=== PATIENT | female | born 1960 | race Caucasian/White ===

== ENCOUNTER → 2016-04-18 | Outpatient (CLI) | payer OTHER ==
--- NOTE | 2016-04-20 15:58 | PE ---
Nuclear medicine PET/CT HISTORY: Solitary pulmonary nodule Patient received 12.5 mCi F-18 FDG intravenously, delayed scanning performed from the skull base thro ugh the mid thighs. Localization and attenuation correction CT scan was performed. Correlation to chest CT dated 08 September 2015 Neck and chest: Emphysematous changes are present within the lungs. The right upper lobe there is a s piculated density anteriorly with associated calcification measures approximately 16 x 13 mm with ple ural extensions with SUV 4.1, immediately inferior oval area of increased attenuation also with spicu lated margins measures 2.7 x 1.7 cm., SUV 3.9 In the right lower lobe medially there is an oval densi ty which is pleural-based measuring 2 cm x 1.3 cm. Ill-defined area of increased attenuation present at the posterior costophrenic angle also shows some associated calcification, there is an oval area o f subpleural density also at the left lung base laterally measuring 13 mm and showing some calcificat ion, SUV 3.9. These foci show associated hypermetabolic uptake. There are coronary artery calcifications. Abdomen pelvis: Postop changes are present within the spine. No evident adrenal mass. No adenopathy. A sending colon shows some hypermetabolic uptake which may be physiologic. No additional suspicious h ypermetabolic uptake. IMPRESSION: Indeterminate lung masses have developed in the interval. Consider inflammatory and metas tatic disease, follow-up to assess for stability, progression or resolution
== END | disposition home or self-care (01) ==
LOC: RADPETMAIN 11:52
PROVIDERS: ATTEND Family Medicine
DX: R91.1 Solitary pulmonary nodule (principal)
CPT/HCPCS: 78815; A9552

== ENCOUNTER 2016-10-21 13:58 | Emergency (ER) | payer OTHER ==
[2016-10-21 14:08] VITALS: TEMP 97.7
[2016-10-21] MEDS ORDERED: BENZTROPINE MESYLATE 0.5 MG TAB PO STA (14:22)
--- NOTE | 2016-10-21 14:26 | ED ---
General Adult HPI - General Chief complaint: ENT Stated complaint: FACIAL TREMORS Time Seen by Provider: 10/21/16 14:03 Source: patient, EMS, RN notes reviewed Mode of arrival: EMS Limitations: no limitations - History of Present Illness Initial comments: 56-year-old female presents emergency department for [facility] for involuntary jaw tremors. This has been present for the last 1 week. Staff at [facility] has been aware this will she has not been seen by her physician at [facility]. Patient states that aside getting worse or better. Patient denies any difficulty swallowing this time. Patient states that she is hungry. Patient does take Risperdal and has been on it for a long period time. Patient is a history of COPD and congestive heart failure. Patient is only on oxygen takes it off on a regular basis. Patient denies any chest pain or shortness breath at this time. Denies fever, chills, nausea vomiting. Patient has a suicidal homicidal thoughts. Patient has long history of psychiatric health problems. Patient has been out of psychiatric hospitals. - Related Data Home Medications Medication Instructions Recorded Confirmed Montelukast [Singulair] 10 mg PO HS 05/13/15 10/21/16 Budesonide [Pulmicort] 0.5 mg INHALATION RT-BID 10/24/15 10/21/16 Furosemide [Lasix] 40 mg PO BID 10/24/15 10/21/16 ALPRAZolam [Xanax] 0.5 mg PO DAILY PRN 10/21/16 10/21/16 ALPRAZolam [Xanax] 0.5 mg PO TID 10/21/16 10/21/16 Acetaminophen Tab [Tylenol] 650 mg PO Q4H PRN 10/21/16 10/21/16 Albuterol Nebulized [Ventolin 2.5 mg INHALATION RT-Q4H 10/21/16 10/21/16 Nebulized] HYDROcodone/APAP 5-325MG [[place] 1 tab PO Q8H PRN 10/21/16 10/21/16 5-325] Hydrocortisone Cream 1 applic TOPICAL Q12H 10/21/16 10/21/16 [Hydrocortisone 1% Cream] Ipratropium Nebulized [Atrovent 0.5 mg INHALATION RT-Q4H 10/21/16 10/21/16 Nebulized] Levothyroxine Sodium [Synthroid] 100 mcg PO DAILY 10/21/16 10/21/16 Melatonin 3 mg PO HS 10/21/16 10/21/16 Menthol [Icy Hot] 1 patch TRANSDERM DAILY 10/21/16 10/21/16 Multivitamins, Thera [Multivitamin 1 tab PO DAILY 10/21/16 10/21/16 (formulary)] Potassium Chloride [Klor-Con 10] 10 meq PO BID 10/21/16 10/21/16 Theophylline Anhydrous [Horace-24] 100 mg PO DAILY 10/21/16 10/21/16 Zolpidem [Ambien] 5 mg PO HS 10/21/16 10/21/16 diphenhydrAMINE [Benadryl] 25 mg PO Q12H PRN 10/21/16 10/21/16 risperiDONE [RisperDAL] 4 mg PO HS 10/21/16 10/21/16 Previous Rx's Medication Instructions Recorded levETIRAcetam [Keppra] 1,500 mg PO Q12HR #90 tab 08/16/15 Allergies Allergy/AdvReac Type Severity Reaction Status Date / Time cephalexin monohydrate Allergy Unknown Verified 10/21/16 14:34 [From Keflex] erythromycin base Allergy Unknown Verified 10/21/16 14:34 [Erythromycin Base] Iodinated Contrast- Oral and Allergy Unknown Verified 10/21/16 14:34 IV Dye Penicillins Allergy Unknown Verified 10/21/16 14:34 Sulfa (Sulfonamide Allergy Unknown Verified 10/21/16 14:34 Antibiotics) azithromycin [From Zithromax] AdvReac Nausea Verified 10/21/16 14:34 Opioids - Morphine Analogues AdvReac Confusion Verified 10/21/16 14:34 sulfamethoxazole AdvReac Nausea Verified 10/21/16 14:34 [From Bactrim] trimethoprim [From Bactrim] AdvReac Nausea Verified 10/21/16 14:34 Review of Systems ROS Statement: Those systems with pertinent positive or pertinent negative responses have been documented in the HPI. ROS Other: All systems not noted in ROS Statement are negative. 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 History of Any Multi-Drug Resistant Organisms: MRSA Date of last positivie culture/infection: 1995 MDRO Source:: back (pt uncertain where she was treated) Past Surgical History: Adenoidectomy, Appendectomy, Back Surgery, Hysterectomy, Orthopedic Surgery, Tonsillectomy Additional Past Surgical History / Comment(s): back surgeries with rods in back , lt hip orif, colonoscopy, R eye tear duct repair.PICC LINE-SINCE REMOVED . Past Anesthesia/Blood Transfusion Reactions: No Reported Reaction Past Psychological History: Bipolar Smoking Status: Former smoker Past Alcohol Use History: None Reported Past Drug Use History: None Reported - Past Family History Father Family Medical History: Liver Disease Additional Family Medical History / Comment(s): from cirrhosis of the liver d/t etoh Mother Family Medical History: Congestive Heart Failure (CHF), Diabetes Mellitus, Osteoarthritis (OA) Additional Family Medical History / Comment(s): diverticulitis, osteoporosis Sister(s) Family Medical History: Liver Disease Additional Family Medical History / Comment(s): one sister at age 37 from cirrhosis of the liver-was heavy drinker General Exam Limitations: no limitations General appearance: alert, in no apparent distress Head exam: Present: atraumatic, normocephalic, normal inspection Eye exam: Present: normal appearance, PERRL, EOMI. Absent: scleral icterus, conjunctival injection, periorbital swelling ENT exam: Present: normal oropharynx, mucous membranes moist, TM's normal bilaterally, normal external ear exam, other (Patient's jaw is shifting back and forth though when distracted it does stop.). Absent: normal exam Neck exam: Present: normal inspection, full ROM. Absent: tenderness, meningismus, lymphadenopathy Respiratory exam: Present: normal lung sounds bilaterally. Absent: respiratory distress, wheezes, rales, rhonchi, stridor Cardiovascular Exam: Present: regular rate, normal rhythm, normal heart sounds. Absent: systolic murmur, diastolic murmur, rubs, gallop, clicks Neurological exam: Present: alert, oriented X3, CN II-XII intact, reflexes normal. Absent: motor sensory deficit Skin exam: Present: warm, dry, intact, normal color. Absent: rash Course Vital Signs 10/21/16 10/21/16 14:03 14:48 Temperature 97.7 F Pulse Rate 61 72 Respiratory 18 14 Rate Blood Pressure 126/80 96/72 O2 Sat by Pulse 91 L 94 L Oximetry Medical Decision Making - Medical Decision Making 56-year-old female was in emergency Department with chief complaint of abnormal her jaw. This is most likely secondary to her which were all use. Patient has been on for over a year. Patient is having a dystonic type reaction. This does resolve if he described the patient. Patient was given Cogentin slight improvement over symptoms. Though she may require higher dose this will be decided by her primary care physician who is taking care of her at [facility]. - Lab Data Result diagrams: 10/21/16 14:31 10/21/16 14:31 Lab Results 10/21/16 10/21/16 Range/Units 14:31 14:31 WBC 8.2 (3.8-10.6) k/uL RBC 5.26 (3.80-5.40) m/uL Hgb 14.3 (11.4-16.0) gm/dL Hct 45.0 (34.0-46.0) % MCV 85.6 (80.0-100.0) fL MCH 27.3 (25.0-35.0) pg MCHC 31.9 (31.0-37.0) g/dL RDW 16.1 H (11.5-15.5) % Plt Count 269 (150-450) k/uL Neutrophils % 69 % Lymphocytes % 21 % Monocytes % 6 % Eosinophils % 2 % Basophils % 0 % Neutrophils # 5.7 (1.3-7.7) k/uL Lymphocytes # 1.8 (1.0-4.8) k/uL Monocytes # 0.5 (0-1.0) k/uL Eosinophils # 0.1 (0-0.7) k/uL Basophils # 0.0 (0-0.2) k/uL Anisocytosis Slight Sodium 138 (137-145) mmol/L Potassium 3.5 (3.5-5.1) mmol/L Chloride 100 (98-107) mmol/L Carbon Dioxide 28 (22-30) mmol/L Anion Gap 10 mmol/L BUN 10 (7-17) mg/dL Creatinine 0.60 (0.52-1.04) mg/dL Est GFR (MDRD) Af Amer >60 (>60 ml/min/1.73 sqM) Est GFR (MDRD) Non-Af >60 (>60 ml/min/1.73 sqM) Glucose 90 (74-99) mg/dL Calcium 9.2 (8.4-10.2) mg/dL Magnesium 1.9 (1.6-2.3) mg/dL Total Bilirubin 0.4 (0.2-1.3) mg/dL AST 30 (14-36) U/L ALT 34 (9-52) U/L Alkaline Phosphatase 103 (38-126) U/L Total Protein 6.6 (6.3-8.2) g/dL Albumin 3.8 (3.5-5.0) g/dL Disposition Clinical Impression: Medication reaction, Dyskinesia of mouth Disposition: HOME SELF-CARE Condition: Stable Instructions: Risperidone (By mouth) Additional Instructions: Please return to the Emergency Department if symptoms worsen or any other concerns. Referrals: Daniel Toney MD [Primary Care Provider] - 1-2 days Time of Disposition: 15:30
[2016-10-21 14:48] VITALS: BP 96/72; PULSE 72; RESP 14
[2016-10-21 14:51] LABS: Anisocytosis Slight; Basophils % (A) 0 %; CH 28.5; CHCM 33.5; Eosinophils # (A) 0.1 k/uL (0-0.7); Eosinophils % (A) 2 %; HDW 2.79; HGB 14.3 gm/dL (11.4-16.0); Luc # (Auto) 0.13; Luc % (Auto) 2; Lymphocytes # (A) 1.8 k/uL (1.0-4.8); Lymphocytes % (A) 21 %; MCH 27.3 pg (25.0-35.0); MCHC 31.9 g/dL (31.0-37.0); MCV 85.6 fL (80.0-100.0); Mean Platelet Volume 6.9; Monocytes # (A) 0.5 k/uL (0-1.0); Monocytes % (A) 6 %; Neutrophils # (A) 5.7 k/uL (1.3-7.7); Neutrophils % (A) 69 %; RBC 5.26 m/uL (3.80-5.40); RDW 16.1 % (11.5-15.5); WBC 8.2 k/uL (3.8-10.6); WBC (Perox) 7.97
[2016-10-21 15:04] LABS: ALT 34 U/L (9-52); AST 30 U/L (14-36); Alkaline Phosphatase 103 U/L (38-126); Anion Gap 10 mmol/L; Blood Urea Nitrogen 10 mg/dL (7-17); Calcium 9.2 mg/dL (8.4-10.2); Carbon Dioxide 28 mmol/L (22-30); Chloride 100 mmol/L (98-107); Glucose 90 mg/dL (74-99); Magnesium 1.9 mg/dL (1.6-2.3); Non-African American GFR(MDRD) >60 (>60 ml/min/1.73 sqM); Potassium 3.5 mmol/L (3.5-5.1); Sodium 138 mmol/L (137-145); Total Bilirubin 0.4 mg/dL (0.2-1.3); Total Protein 6.6 g/dL (6.3-8.2)
--- NOTE | 2016-10-21 15:23 | XR ---
EXAMINATION TYPE: XR chest 2V DATE OF EXAM: 10/21/2016 COMPARISON: 10/24/2016 HISTORY: Facial tremors, asthma, and COPD. TECHNIQUE: Frontal and lateral views of the chest are obtained. FINDINGS: There is no focal air space opacity, pleural effusion, or pneumothorax seen. Biapical luce ncy is appreciated. Scattered areas of atelectasis are noted. Partially visualized thoracic fixation rods are seen. The cardiac silhouette is incompletely visualized but again appears mildly enlarged. The osseous structures are intact. The known right lung nodules are not well appreciated on this exa mination. IMPRESSION: 1. No focal consolidation. Scattered areas of atelectasis. The known pulmonary nodules are not well i dentified on this examination. Comparison CT for evaluation of interval change could be performed.
== END 2016-10-21 16:09 | disposition home or self-care (01) ==
LOC: EC 13:58
DX: G24.9 Dystonia, unspecified (principal); T43.591A Poisoning by other antipsychotics and neuroleptics, accidental (unintentional), initial encounter; J44.9 Chronic obstructive pulmonary disease, unspecified; I11.0 Hypertensive heart disease with heart failure; I50.9 Heart failure, unspecified; M79.7 Fibromyalgia; K21.9 Gastro-esophageal reflux disease without esophagitis; E78.5 Hyperlipidemia, unspecified; M19.90 Unspecified osteoarthritis, unspecified site; E07.9 Disorder of thyroid, unspecified; G40.909 Epilepsy, unspecified, not intractable, without status epilepticus; F03.90 Unspecified dementia, unspecified severity, without behavioral disturbance, psychotic disturbance, mood disturbance, and anxiety; F31.9 Bipolar disorder, unspecified; Z87.891 Personal history of nicotine dependence; Z79.51 Long term (current) use of inhaled steroids; Z79.899 Other long term (current) drug therapy; Z88.0 Allergy status to penicillin; Z88.1 Allergy status to other antibiotic agents; Z88.2 Allergy status to sulfonamides; Z91.041 Radiographic dye allergy status; Z88.5 Allergy status to narcotic agent
CPT/HCPCS: 36415; 71020; 80053; 80177; 83735; 85025; 99285

== ENCOUNTER → 2018-11-14 | Outpatient (CLI) | payer OTHER ==
--- NOTE | 2018-11-14 11:13 | US ---
EXAMINATION TYPE: US abdomen complete DATE OF EXAM: 11/14/2018 COMPARISON: NONE CLINICAL HISTORY: 58-year-old female D69.6 Thrombocytopenia, unspecified. GB removed x years ago per patient. Abnormal labs TECHNIQUE: Multiple sonographic images of the abdomen are obtained. FINDINGS: EXAM MEASUREMENTS: Liver Length: 19.8 cm CBD: 0.5 cm CHD: 0.5 cm Spleen: 14.5 cm Right Kidney: 9.0 x 4.3 x 3.8 cm Left Kidney: 9.9 x 4.3 x 5.1 cm Pancreas: No gross abnormality. Liver: Enlarged. Echogenic and heterogenous. No focal lesion seen. Gallbladder: Surgically absent Evidence for sonographic Su's sign: neg CBD: wnl CHD: wnl Spleen: Mildly enlarged Right Kidney: wnl Left Kidney: wnl Upper IVC: wnl Abd Aorta: Mid and distal portion obscured by overlying bowel gas IMPRESSION: 1. Hepatomegaly (19.8 cm) with at least moderate hepatic steatosis. Correlate with LFTs, lipid profil e, and patient risk factors. 2. Status post cholecystectomy. No biliary duct dilatation.
== END | disposition home or self-care (01) ==
LOC: RADUSWWP 10:09
PROVIDERS: ATTEND Internal Medicine Hematology & Oncology
DX: K76.0 Fatty (change of) liver, not elsewhere classified (principal); Z90.49 Acquired absence of other specified parts of digestive tract; Z88.2 Allergy status to sulfonamides; Z88.0 Allergy status to penicillin
CPT/HCPCS: 76700

== ENCOUNTER 2021-08-26 15:14 | Emergency (ER) | payer OTHER ==
[2021-08-26] MEDS ORDERED: SODIUM CHLORIDE 0.9% 500 ML 500 ML IV STA (15:43)
[2021-08-26] MEDS ORDERED: ONDANSETRON 4 MG/2 ML VIAL IVP STA (15:43)
[2021-08-26] MEDS ORDERED: MAGNESIUM SULFATE-D5W PMX 1 GM in DEXTROSE/WATER 1 100ML.BAG IVPB ONE (15:44)
[2021-08-26] MEDS ORDERED: methylPREDNISolone SOD SUCCI 125 MG/2 ML VIAL IV STA (15:44)
[2021-08-26] MEDS ORDERED: IPRATROPIUM-ALBUTEROL 3 ML NEB INHALATION STA (15:44)
--- NOTE | 2021-08-26 15:44 | ED ---
General Adult HPI - General Chief complaint: Weakness Stated complaint: Weakness Time Seen by Provider: 08/26/21 15:22 Source: patient, EMS, RN notes reviewed, old records reviewed Mode of arrival: EMS Limitations: no limitations - History of Present Illness Initial comments: Katie is a 61-year-old female with past medical history remarkable for dementia, asthma, heart failure, prior CVA, fibromyalgia, hypertension, chronic back pain, stage IV lung disease on home 3-4 L nasal cannula who presents emergency Department from her nursing facility over concern for evaluation for possible stroke. Patient is complaining of generalized weakness in addition to a tingling sensation located in the left hand and left foot. She thinks it may have gone completely numb earlier today but is uncertain. Patient is overall a somewhat poor historian. She only has minor numbness that is residual in her left neck. She's been having diarrhea over the last week as well. She also endorses what she thinks is a flare of her COPD/asthma. Endorses a cough that i s persisting, unchanged otherwise. Denies any fevers, chills, sick contacts. Denies any vomiting but does endorse nausea. Denies hematochezia or melena. - Related Data Home Medications Medication Instructions Recorded Confirmed Budesonide [Pulmicort] 0.5 mg INHALATION RT-BID 10/24/15 08/26/21 Furosemide [Lasix] 40 mg PO BID 10/24/15 08/26/21 ALPRAZolam [Xanax] 0.5 mg PO Q8H 10/21/16 08/26/21 Acetaminophen Tab [Tylenol] 650 mg PO Q6H PRN 10/21/16 08/26/21 Levothyroxine Sodium [Synthroid] 100 mcg PO DAILY 10/21/16 08/26/21 Multivitamins, Thera [Multivitamin 1 tab PO DAILY 10/21/16 08/26/21 (formulary)] Potassium Chloride [Klor-Con 10] 10 meq PO BID 10/21/16 08/26/21 Theophylline Anhydrous [Horace-24] 200 mg PO DAILY 10/21/16 08/26/21 diphenhydrAMINE [Benadryl] 50 mg PO BID 10/21/16 08/26/21 Benzocaine/Menthol [Cepacol Sore 1 lozenge MM Q3H PRN 08/26/21 08/26/21 Throat Lozenge] Cyclobenzaprine HCl 7.5 mg PO HS PRN 08/26/21 08/26/21 DULoxetine HCL [Cymbalta] 30 mg PO DAILY 08/26/21 08/26/21 Desoximetasone [Desoximetasone 1 applic TOPICAL BID 08/26/21 08/26/21 0.25%] Docusate [Colace] 200 mg PO DAILY 08/26/21 08/26/21 Guaifenesin/Pseudoephedrne HCl 1 tab PO BID PRN 08/26/21 08/26/21 [Mucinex D ER 1,200-120 mg Tab] HYDROcodone/APAP 7.5-325MG [Daisy 1 tab PO Q6HR 08/26/21 08/26/21 7.5-325] Ipratropium-Albuterol Nebulize 3 ml INHALATION RT-Q6H PRN 08/26/21 08/26/21 [Duoneb 0.5 mg-3 mg/3 ml Soln] Menthol [Biofreeze] 1 applic TOPICAL BID PRN 08/26/21 08/26/21 Montelukast [Singulair] 10 mg PO HS 08/26/21 08/26/21 Pantoprazole Sodium [Protonix] 20 mg PO DAILY 08/26/21 08/26/21 Zolpidem Tartrate [Ambien] 10 mg PO HS 08/26/21 08/26/21 atenoloL [Tenormin] 25 mg PO Q12H 08/26/21 08/26/21 levETIRAcetam [Keppra Oral 900 mg PO Q12H 08/26/21 08/26/21 Solution] lisinopriL [Zestril] 5 mg PO DAILY 08/26/21 08/26/21 polyethylene glycoL 3350 [Miralax] 17 gm PO DAILY PRN 08/26/21 08/26/21 risperiDONE [RisperDAL] 1 mg PO HS 08/26/21 08/26/21 Previous Rx's Medication Instructions Recorded Albuterol Inhaler [Ventolin Hfa 1 - 2 puff INHALATION RT-Q6H PRN 08/26/21 Inhaler] #1 unit Doxycycline Hyclate 100 mg PO Q12H 7 Days #14 tab 08/26/21 predniSONE [Deltasone] 40 mg PO DAILY 5 Days #10 tab 08/26/21 Allergies Allergy/AdvReac Type Severity Reaction Status Date / Time cephalexin monohydrate Allergy Unknown Verified 08/26/21 17:22 [From Keflex] erythromycin base Allergy Unknown Verified 08/26/21 17:22 [Erythromycin Base] Iodinated Contrast Media Allergy Unknown Verified 08/26/21 17:22 [Iodinated Contrast- Oral and IV Dye] Penicillins Allergy Unknown Verified 08/26/21 17:22 Sulfa (Sulfonamide Allergy Unknown Verified 08/26/21 17:22 Antibiotics) azithromycin [From Zithromax] AdvReac Nausea Verified 08/26/21 17:22 Opioids - Morphine Analogues AdvReac Confusion Verified 08/26/21 17:22 sulfamethoxazole AdvReac Nausea Verified 08/26/21 17:22 [From Bactrim] trimethoprim [From Bactrim] AdvReac Nausea Verified 08/26/21 17:22 Review of Systems ROS Statement: Those systems with pertinent positive or pertinent negative responses have been documented in the HPI. Review of Systems: CONST: Denies fever EYES: Denies blurry vision ENT: Denies nasal congestion C/V: Denies Chest pain RESP: Denies shortness of breath GI: Denies abdominal pain : Denies dysuria SKIN: Denies rash. MSK: Denies joint pain. NEURO: Denies headache ROS Other: All systems not noted in ROS Statement are negative. Past Medical History Past Medical History: Asthma, Heart Failure, COPD, CVA/TIA, Dementia, Fibromyalgia, GERD/Reflux, Hyperlipidemia, Hypertension, Osteoarthritis (OA), Pneumonia, Respiratory Disorder, Seizure Disorder, Thyroid Disorder Additional Past Medical History / Comment(s): Stage IV lung disease, home 02 4 liters n/c ATC, CVA in 2009 and 2013 with behavior changes, seizure disorder w ith last seizure 2013, back pain with bilateral sciatica, osteoporosis, peptic ulcer disease, hiatal hernia, vertigo in past, does"nt walk with staright back d/t rods in back/balance issues and falls, AKIAK bilaterally,UTI'S constipation LAST BM 4 DAYS AGO. History of Any Multi-Drug Resistant Organisms: MRSA Date of last positivie culture/infection: 1995 MDRO Source:: back (pt uncertain where she was treated) Past Surgical History: Adenoidectomy, Appendectomy, Back Surgery, Hysterectomy, Orthopedic Surgery, Tonsillectomy Additional Past Surgical History / Comment(s): back surgeries with rods in back, lt hip orif, colonoscopy, R eye tear duct repair.PICC LINE-SINCE REMOVED 09-26-15. Past Anesthesia/Blood Transfusion Reactions: No Reported Reaction Past Psychological History: Bipolar Past Alcohol Use History: None Reported Past Drug Use History: None Reported - Past Family History Father Family Medical History: Liver Disease Additional Family Medical History / Comment(s): from cirrhosis of the liver d/t etoh Mother Family Medical History: Congestive Heart Failure (CHF), Diabetes Mellitus, Osteoarthritis (OA) Additional Family Medical History / Comment(s): diverticulitis, osteoporosis Sister(s) Family Medical History: Liver Disease Additional Family Medical History / Comment(s): one sister at age 37 from cirrhosis of the liver-was heavy drinker General Exam - General Exam Comments Initial Comments: General: Appears in no acute distress. HEAD: Normal with no signs of head trauma. EYES: PERRLA, EOMI, conjunctiva normal, no discharge. ENT: Hearing grossly intact, normal oropharynx. RESPIRATORY: Bilateral end expiratory wheezing. Stable on normal home oxygen. No increased work of breathing. C/V: Regular rate and rhythm. S1 and S2 auscultated, no edema, peripheral pu lses 2+ and intact throughout ABD: Abd is soft, nontender, nondistended EXT: Normal range of motion, no obvious deformity SKIN: No rashes or lesions observed on exposed skin. NEURO: Alert and oriented 4. NIH of 0. GCS of 15. No focal deficits. Limitations: no limitations Course Vital Signs 08/26/21 08/26/21 08/26/21 15:24 16:15 16:26 Temperature 98.8 F Pulse Rate 74 62 66 Respiratory 16 Rate Blood Pressure 175/86 O2 Sat by Pulse 94 L Oximetry Medical Decision Making - Medical Decision Making Based on the patient's presentation and physical exam, I'm concerned for multiple potential etiologies for current symptoms. Likely related to her COPD she hasn't completed COPD exacerbation. Will be given breathing treatment as well as steroids. She does endorse a mild productive cough and will likely go home on antibiotics for bronchitis. We will obtain a broad workup assessing for signs of weakness as well as CT brain. Patient was in agreement this plan. Brain CT shows no acute intracranial process. Chest x-ray reveals no acute cardiopulmonary process. Laboratory studies are remarkable for a slight leukocytosis of 10.8. Troponin is undetectable, BNP is within normal limits. Carbon dioxide is slightly elevated to 38. Remainder the workup is unremarkable. I discussed with her the results of her laboratory studies and imaging. I believe it is safer to be discharged home at this time. She was in agreement this plan. I spoke with the patient's niece, Grace who was in agreement this plan. She'll be discharged home on steroids, breathing treatments, as well as antibiotics for bronchitis. Vital Signs remained within normal limits throughout her stay. I will provide the patient with a prescription for prednisone, albuterol, doxycycline. I instructed the patient to follow up with their PCP in the next 3 days. I explained that the patient should return to the emergency department if they experience any worsening symptoms. Strict return precautions were discussed with the patient. The patient expressed understanding of these instructions. I answered all questions that the patient had. The patient was discharged home in good condition with their prescriptions and follow up information. - Lab Data Result diagrams: 08/26/21 15:51 08/26/21 15:51 Lab Results 08/26/21 08/26/21 08/26/21 Range/Units 15:51 15:51 15:51 WBC 10.8 H (3.8-10.6) k/uL RBC 4.45 (3.80-5.40) m/uL Hgb 12.4 (11.4-16.0) gm/dL Hct 40.3 (34.0-46.0) % MCV 90.5 (80.0-100.0) fL MCH 27.9 (25.0-35.0) pg MCHC 30.9 L (31.0-37.0) g/dL RDW 14.9 (11.5-15.5) % Plt Count 256 (150-450) k/uL MPV 6.6 Neutrophils % 70 % Lymphocytes % 20 % Monocytes % 7 % Eosinophils % 1 % Basophils % 1 % Neutrophils # 7.6 (1.3-7.7) k/uL Lymphocytes # 2.1 (1.0-4.8) k/uL Monocytes # 0.7 (0-1.0) k/uL Eosinophils # 0.1 (0-0.7) k/uL Basophils # 0.1 (0-0.2) k/uL Hypochromasia Slight PT 10.8 (9.0-12.0) sec INR 1.0 (<1.2) APTT 19.9 L (22.0-30.0) sec Sodium (137-145) mmol/L Potassium (3.5-5.1) mmol/L Chloride (98-107) mmol/L Carbon Dioxide (22-30) mmol/L Anion Gap mmol/L BUN (7-17) mg/dL Creatinine (0.52-1.04) mg/dL Est GFR (CKD-EPI)AfAm (>60 ml/min/1.73 sqM) Est GFR (CKD-EPI)NonAf (>60 ml/min/1.73 sqM) Glucose (74-99) mg/dL Calcium (8.4-10.2) mg/dL Magnesium (1.6-2.3) mg/dL Total Bilirubin (0.2-1.3) mg/dL AST (14-36) U/L ALT (4-34) U/L Alkaline Phosphatase (38-126) U/L Troponin I (0.000-0.034) ng/mL NT-Pro-B Natriuret Pep pg/mL Total Protein (6.3-8.2) g/dL Albumin (3.5-5.0) g/dL Urine Color Colorless Urine Appearance Clear (Clear) Urine pH 7.0 (5.0-8.0) Ur Specific [place] 1.003 (1.001-1.035) Urine Protein Negative (Negative) Urine Glucose (UA) Negative (Negative) Urine Ketones Negative (Negative) Urine Blood Negative (Negative) Urine Nitrite Negative (Negative) Urine Bilirubin Negative (Negative) Urine Urobilinogen <2.0 (<2.0) mg/dL Ur Leukocyte Esterase Negative (Negative) Coronavirus (PCR) (Not Detectd) Influenza Type A RNA (Not Detectd) Influenza Type B (PCR) (Not Detectd) 08/26/21 08/26/21 08/26/21 Range/Units 15:51 15:51 15:51 WBC (3.8-10.6) k/uL RBC (3.80-5.40) m/uL Hgb (11.4-16.0) gm/dL Hct (34.0-46.0) % MCV (80.0-100.0) fL MCH (25.0-35.0) pg MCHC (31.0-37.0) g/dL RDW (11.5-15.5) % Plt Count (150-450) k/uL MPV Neutrophils % % Lymphocytes % % Monocytes % % Eosinophils % % Basophils % % Neutrophils # (1.3-7.7) k/uL Lymphocytes # (1.0-4.8) k/uL Monocytes # (0-1.0) k/uL Eosinophils # (0-0.7) k/uL Basophils # (0-0.2) k/uL Hypochromasia PT (9.0-12.0) sec INR (<1.2) APTT (22.0-30.0) sec Sodium 140 (137-145) mmol/L Potassium 4.1 (3.5-5.1) mmol/L Chloride 95 L (98-107) mmol/L Carbon Dioxide 38 H (22-30) mmol/L Anion Gap 7 mmol/L BUN 13 (7-17) mg/dL Creatinine 0.73 (0.52-1.04) mg/dL Est GFR (CKD-EPI)AfAm >90 (>60 ml/min/1.73 sqM) Est GFR (CKD-EPI)NonAf >90 (>60 ml/min/1.73 sqM) Glucose 108 H (74-99) mg/dL Calcium 8.9 (8.4-10.2) mg/dL Magnesium 2.3 (1.6-2.3) mg/dL Total Bilirubin 0.2 (0.2-1.3) mg/dL AST 34 (14-36) U/L ALT 16 (4-34) U/L Alkaline Phosphatase 80 (38-126) U/L Troponin I <0.012 (0.000-0.034) ng/mL NT-Pro-B Natriuret Pep 192 pg/mL Total Protein 7.7 (6.3-8.2) g/dL Albumin 4.6 (3.5-5.0) g/dL Urine Color Urine Appearance (Clear) Urine pH (5.0-8.0) Ur Specific [place] (1.001-1.035) Urine Protein (Negative) Urine Glucose (UA) (Negative) Urine Ketones (Negative) Urine Blood (Negative) Urine Nitrite (Negative) Urine Bilirubin (Negative) Urine Urobilinogen (<2.0) mg/dL Ur Leukocyte Esterase (Negative) Coronavirus (PCR) (Not Detectd) Influenza Type A RNA (Not Detectd) Influenza Type B (PCR) (Not Detectd) 08/26/21 08/26/21 Range/Units 16:00 16:00 WBC (3.8-10.6) k/uL RBC (3.80-5.40) m/uL Hgb (11.4-16.0) gm/dL Hct (34.0-46.0) % MCV (80.0-100.0) fL MCH (25.0-35.0) pg MCHC (31.0-37.0) g/dL RDW (11.5-15.5) % Plt Count (150-450) k/uL MPV Neutrophils % % Lymphocytes % % Monocytes % % Eosinophils % % Basophils % % Neutrophils # (1.3-7.7) k/uL Lymphocytes # (1.0-4.8) k/uL Monocytes # (0-1.0) k/uL Eosinophils # (0-0.7) k/uL Basophils # (0-0.2) k/uL Hypochromasia PT (9.0-12.0) sec INR (<1.2) APTT (22.0-30.0) sec Sodium (137-145) mmol/L Potassium (3.5-5.1) mmol/L Chloride (98-107) mmol/L Carbon Dioxide (22-30) mmol/L Anion Gap mmol/L BUN (7-17) mg/dL Creatinine (0.52-1.04) mg/dL Est GFR (CKD-EPI)AfAm (>60 ml/min/1.73 sqM) Est GFR (CKD-EPI)NonAf (>60 ml/min/1.73 sqM) Glucose (74-99) mg/dL Calcium (8.4-10.2) mg/dL Magnesium (1.6-2.3) mg/dL Total Bilirubin (0.2-1.3) mg/dL AST (14-36) U/L ALT (4-34) U/L Alkaline Phosphatase (38-126) U/L Troponin I (0.000-0.034) ng/mL NT-Pro-B Natriuret Pep pg/mL Total Protein (6.3-8.2) g/dL Albumin (3.5-5.0) g/dL Urine Color Urine Appearance (Clear) Urine pH (5.0-8.0) Ur Specific [place] (1.001-1.035) Urine Protein (Negative) Urine Glucose (UA) (Negative) Urine Ketones (Negative) Urine Blood (Negative) Urine Nitrite (Negative) Urine Bilirubin (Negative) Urine Urobilinogen (<2.0) mg/dL Ur Leukocyte Esterase (Negative) Coronavirus (PCR) Not Detected (Not Detectd) Influenza Type A RNA Not Detected (Not Detectd) Influenza Type B (PCR) Not Detected (Not Detectd) Disposition Clinical Impression: Asthma exacerbation, Bronchitis, Weakness Disposition: HOME SELF-CARE Condition: Good Prescriptions: predniSONE [Deltasone] 40 mg PO DAILY 5 Days #10 tab Doxycycline Hyclate 100 mg PO Q12H 7 Days #14 tab Albuterol Inhaler [Ventolin Hfa Inhaler] 1 - 2 puff INHALATION RT-Q6H PRN #1 unit PRN Reason: Wheezing Is patient prescribed a controlled substance at d/c from ED?: No Referrals: Hong Martin DO [Primary Care Provider] - 1-2 days Time of Disposition: 17:40
[2021-08-26 15:49] VITALS: BP 175/86; RESP 16; TEMP 98.8
[2021-08-26 16:13] LABS: ALT 16 U/L (4-34); AST 34 U/L (14-36); African American GFR (CKD) >90 (>60 ml/min/1.73 sqM); Albumin 4.6 g/dL (3.5-5.0); Alkaline Phosphatase 80 U/L (38-126); Anion Gap 7 mmol/L; Blood Urea Nitrogen 13 mg/dL (7-17); Calcium 8.9 mg/dL (8.4-10.2); Carbon Dioxide 38 mmol/L (22-30); Chloride 95 mmol/L (98-107); Glucose 108 mg/dL (74-99); Magnesium 2.3 mg/dL (1.6-2.3); Non-African American GFR(CKD) >90 (>60 ml/min/1.73 sqM); Potassium 4.1 mmol/L (3.5-5.1); Sodium 140 mmol/L (137-145); Total Bilirubin 0.2 mg/dL (0.2-1.3); Total Protein 7.7 g/dL (6.3-8.2)
[2021-08-26 16:17] LABS: Basophils # (A) 0.1 k/uL (0-0.2); Basophils % (A) 1 %; Eosinophils # (A) 0.1 k/uL (0-0.7); Eosinophils % (A) 1 %; HCT 40.3 % (34.0-46.0); HGB 12.4 gm/dL (11.4-16.0); Hypochromasia Slight; Lymphocytes # (A) 2.1 k/uL (1.0-4.8); Lymphocytes % (A) 20 %; MCH 27.9 pg (25.0-35.0); MCHC 30.9 g/dL (31.0-37.0); MCV 90.5 fL (80.0-100.0); Mean Platelet Volume 6.6; Monocytes # (A) 0.7 k/uL (0-1.0); Monocytes % (A) 7 %; Neutrophils # (A) 7.6 k/uL (1.3-7.7); Neutrophils % (A) 70 %; Platelet Count 256 k/uL (150-450); Prothrombin Time 10.8 sec (9.0-12.0); RBC 4.45 m/uL (3.80-5.40); RDW 14.9 % (11.5-15.5); WBC 10.8 k/uL (3.8-10.6)
[2021-08-26 16:25] LABS: Appearance,Urine Clear (Clear); Bilirubin,Urine Negative (Negative); Blood,Urine Negative (Negative); Color,Urine Colorless; Glucose,Urine (UA) Negative (Negative); Ketones,Urine Negative (Negative); Leukocyte Esterase,Urine Negative (Negative); Nitrite,Urine Negative (Negative); Protein,Urine Negative (Negative); Specific Gravity,Urine 1.003 (1.001-1.035); Urobilinogen,Urine <2.0 mg/dL (<2.0)
[2021-08-26 16:27] VITALS: PULSE 66
[2021-08-26 16:27] LABS: Partial Thromboplastin Time 19.9 sec (22.0-30.0)
--- NOTE | 2021-08-26 17:28 | XR ---
EXAMINATION TYPE: XR chest 2V DATE OF EXAM: 08/26/2021 COMPARISON: 10/21/2016 HISTORY: Weakness TECHNIQUE: FINDINGS: There is no heart failure nor confluent pneumonic infiltrate. There is thoracolumbar spine fusion surgery. Costophrenic angles are clear. There are no hilar masses. IMPRESSION: There is some mild subsegmental atelectasis at the right lung base that cleared compared to old exam. No active cardiopulmonary disease.
--- NOTE | 2021-08-26 17:39 | CT ---
EXAMINATION TYPE: CT brain wo con DATE OF EXAM: 08/26/2021 COMPARISON: 10/26/2015 HISTORY: ams, weakness CT DLP: 1163.4 mGycm Automated exposure control for dose reduction was used. There is mild cerebral atrophy. No mass effect or midline shift. No sign of intracranial hemorrhage. Calvarium is intact. Skull base is intact. IMPRESSION: Negative unenhanced head CT scan. No change.
[2021-08-26] MEDS ORDERED: DOXYCYCLINE 100 MG CAP PO STA (17:56)
== END 2021-08-26 18:46 | disposition home or self-care (01) ==
LOC: EC 15:14
DX: J45.901 Unspecified asthma with (acute) exacerbation (principal); J45.909 Unspecified asthma, uncomplicated; E78.5 Hyperlipidemia, unspecified; I10 Essential (primary) hypertension; K21.9 Gastro-esophageal reflux disease without esophagitis; Z79.83 Long term (current) use of bisphosphonates; Z20.822 Contact with and (suspected) exposure to COVID-19; Z86.73 Personal history of transient ischemic attack (TIA), and cerebral infarction without residual deficits; Z88.2 Allergy status to sulfonamides; Z88.1 Allergy status to other antibiotic agents; Z88.0 Allergy status to penicillin
CPT/HCPCS: 36415; 83880; 80053; 83735; 84484; 85025; 85610; 85730; 81003; 87502; 87635; 71046; 70450; 99285; 96365; 96375; J2930; J2405; J3475

== ENCOUNTER 2023-05-22 21:45 | Inpatient (IN) | payer OTHER ==
--- NOTE | 2023-05-22 22:11 | ED ---
SOB HPI - General Stated Complaint: SOB Time Seen by Provider: 05/22/23 21:54 Source: RN notes reviewed, old records reviewed, Caregiver Mode of arrival: EMS Limitations: no limitations - History of Present Illness Initial Comments: This is a 63-year-old female presenting to the ER today for evaluation of significant and severe hypoxia with known history of underlying COPD on oxygen. Patient requiring significant more oxygen on arrival to the ER than normal. Patient's oxygen was in the low 80s at [facility] prior to arrival. She is complaining of shortness of breath without chest pain patient symptoms were asymptomatic and found during vital sign checking tonsierra SOTELO Complaint: shortness of breath, cough, "asthma attack", anxiety -: unknown Severity: severe Consistency: constant Improves With: nothing Worsens With: nothing Known History Of: COPD, asthma Context: recent URI, anxiety, recent illness Associated Symptoms: cough, sputum production Treatments Prior to Arrival: oxygen - Related Data Home Medications Medication Instructions Recorded Confirmed Budesonide [Pulmicort] 0.5 mg INHALATION RT-BID 10/24/15 05/23/23 Furosemide [Lasix] 40 mg PO BID 10/24/15 05/23/23 Acetaminophen Tab [Tylenol] 650 mg PO Q6H PRN 10/21/16 05/23/23 Levothyroxine Sodium [Synthroid] 100 mcg PO DAILY 10/21/16 05/23/23 Multivitamins, Thera [Multivitamin 1 tab PO DAILY 10/21/16 05/23/23 (formulary)] Benzocaine/Menthol [Cepacol Throat 1 lozenge MM Q3H PRN 08/26/21 05/23/23 15-3.6 mg Soila] Cyclobenzaprine HCl 7.5 mg PO HS PRN 08/26/21 05/23/23 DULoxetine HCL [Cymbalta] 30 mg PO DAILY 08/26/21 05/23/23 Docusate [Colace] 200 mg PO DAILY 08/26/21 05/23/23 Guaifenesin/Pseudoephedrne HCl 1 tab PO BID PRN 08/26/21 05/23/23 [Mucinex D ER 1,200-120 mg Tab] Ipratropium-Albuterol Nebulize 3 ml INHALATION RT-Q6H 08/26/21 05/23/23 [Duoneb 0.5 mg-3 mg/3 ml Soln] Menthol [Biofreeze] 1 applic TOPICAL Q12H PRN 08/26/21 05/23/23 Montelukast [Singulair] 10 mg PO HS 08/26/21 05/23/23 Pantoprazole Sodium [Protonix] 20 mg PO DAILY 08/26/21 05/23/23 atenoloL [Tenormin] 25 mg PO Q12H 08/26/21 05/23/23 levETIRAcetam [Keppra Oral 900 mg PO Q12H 08/26/21 05/23/23 Solution] lisinopriL [Zestril] 5 mg PO DAILY 08/26/21 05/23/23 polyethylene glycoL 3350 [Miralax] 17 gm PO DAILY PRN 08/26/21 05/23/23 risperiDONE [RisperDAL] 3 mg PO HS 08/26/21 05/23/23 Albuterol Inhaler [Ventolin Hfa 2 puff INHALATION RT-Q6H 05/23/23 05/23/23 Inhaler] Bismuth Subsalicylate 524 mg PO Q4H PRN 05/23/23 05/23/23 [Pepto-Bismol] Lidocaine 4% Patch 1 patch TOPICAL DAILY 05/23/23 05/23/23 Loperamide [Imodium] 2 mg PO QID PRN 05/23/23 05/23/23 Loratadine 10 mg PO DAILY 05/23/23 05/23/23 Potassium Chloride ER [K-Dur 20] 20 meq PO Q12H 05/23/23 05/23/23 Theophylline Anhydrous 200 mg PO DAILY 05/23/23 05/23/23 [Theophylline Oral Soln] guaiFENesin [guaiFENesin Oral 200 mg PO Q6H PRN 05/23/23 05/23/23 Solution] Melatonin 3 mg PO HS 05/25/23 05/25/23 Previous Rx's Medication Instructions Recorded ALPRAZolam [Xanax] 0.5 tab PO DAILY #3 tab 05/31/23 ALPRAZolam [Xanax] 1 mg PO HS #6 tab 05/31/23 Budesonide-Formot 160-4.5 Mcg 2 puff INHALATION RT-BID #1 each 05/31/23 [Symbicort 160-4.5 Mcg Inhaler] HYDROcodone/APAP 7.5-325MG [[place] 1 tab PO Q6HR #12 tab 05/31/23 7.5-325] Linezolid [Zyvox] 600 mg PO Q12H #10 tab 05/31/23 Zolpidem Tartrate [Ambien] 10 mg PO HS #3 tab 05/31/23 predniSONE See Taper PO DIRECTED #30 tab 05/31/23 Allergies Allergy/AdvReac Type Severity Reaction Status Date / Time cephalexin monohydrate Allergy Unknown Verified 05/23/23 13:27 [From Keflex] erythromycin base Allergy Unknown Verified 05/23/23 13:27 [Erythromycin Base] Iodinated Contrast Media Allergy Unknown Verified 05/23/23 13:27 [Iodinated Contrast- Oral and IV Dye] Penicillins Allergy Unknown Verified 05/23/23 13:27 Sulfa (Sulfonamide Allergy Unknown Verified 05/23/23 13:27 Antibiotics) azithromycin [From Zithromax] AdvReac Nausea Verified 05/23/23 13:27 Opioids - Morphine Analogues AdvReac Confusion Verified 05/23/23 13:27 sulfamethoxazole AdvReac Nausea Verified 05/23/23 13:27 [From Bactrim] trimethoprim [From Bactrim] AdvReac Nausea Verified 05/23/23 13:27 Review of Systems ROS Statement: Those systems with pertinent positive or pertinent negative responses have been documented in the HPI. ROS Other: All systems not noted in ROS Statement are negative. 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 History of Any Multi-Drug Resistant Organisms: MRSA Date of last positivie culture/infection: 1995 MDRO Source:: back (pt uncertain where she was treated) Past Surgical History: Adenoidectomy, Appendectomy, Back Surgery, Hysterectomy, Orthopedic Surgery, Tonsillectomy Additional Past Surgical History / Comment(s): back surgeries with rods in back, lt hip orif, colonoscopy, R eye tear duct repair.PICC LINE-SINCE REMOVED 09-26-15. Past Anesthesia/Blood Transfusion Reactions: No Reported Reaction Past Psychological History: Bipolar Past Alcohol Use History: None Reported Past Drug Use History: None Reported - Past Family History Father Family Medical History: Liver Disease Additional Family Medical History / Comment(s): from cirrhosis of the liver d/t etoh Mother Family Medical History: Congestive Heart Failure (CHF), Diabetes Mellitus, Osteoarthritis (OA) Additional Family Medical History / Comment(s): diverticulitis, osteoporosis Sister(s) Family Medical History: Liver Disease Additional Family Medical History / Comment(s): one sister at age 37 from cirrhosis of the liver-was heavy drinker General Exam General appearance: alert, anxious, in distress Head exam: Present: atraumatic, normocephalic, normal inspection Eye exam: Present: normal appearance, PERRL, EOMI. Absent: scleral icterus, conjunctival injection, periorbital swelling ENT exam: Present: normal exam, mucous membranes moist Neck exam: Present: normal inspection. Absent: tenderness, meningismus, lymphadenopathy Respiratory exam: Present: respiratory distress, wheezes, accessory muscle use, decreased breath sounds, prolonged expiratory. Absent: rales, rhonchi, stridor Cardiovascular Exam: Present: regular rate, normal rhythm, normal heart sounds. Absent: systolic murmur, diastolic murmur, rubs, gallop, clicks GI/Abdominal exam: Present: soft, normal bowel sounds. Absent: distended, tenderness, guarding, rebound, rigid Extremities exam: Present: normal inspection, full ROM, normal capillary refill. Absent: tenderness, pedal edema, joint swelling, calf tenderness Back exam: Present: normal inspection Neurological exam: Present: alert, oriented X3, CN II-XII intact Psychiatric exam: Present: normal affect, normal mood Skin exam: Present: warm, dry, intact, normal color. Absent: rash Course Vital Signs 05/22/23 05/22/23 05/22/23 22:05 22:36 22:37 Temperature 98.5 F Pulse Rate 77 75 76 Pulse Rate [ Pulse Oximetery ] Respiratory 24 24 Rate Blood Pressure 145/88 162/76 Blood Pressure [Left Arm] O2 Sat by Pulse 96 98 Oximetry 05/22/23 05/22/23 05/23/23 22:46 23:30 00:46 Temperature Pulse Rate 79 78 Pulse Rate [ Pulse Oximetery ] Respiratory 22 Rate Blood Pressure Blood Pressure [Left Arm] O2 Sat by Pulse Oximetry 05/23/23 05/23/23 05/23/23 00:54 01:21 03:00 Temperature Pulse Rate 77 86 74 Pulse Rate [ Pulse Oximetery ] Respiratory 23 15 Rate Blood Pressure 130/51 143/71 Blood Pressure [Left Arm] O2 Sat by Pulse 92 L 96 Oximetry 05/23/23 05/23/23 05/23/23 04:00 07:00 08:00 Temperature Pulse Rate 70 72 Pulse Rate [ 72 Pulse Oximetery ] Respiratory 20 13 18 Rate Blood Pressure 140/69 117/56 Blood Pressure [Left Arm] O2 Sat by Pulse 96 98 Oximetry 05/23/23 08:20 Temperature 98.7 F Pulse Rate Pulse Rate [ 72 Pulse Oximetery ] Respiratory 18 Rate Blood Pressure Blood Pressure 132/73 [Left Arm] O2 Sat by Pulse 93 L Oximetry - Reevaluation(s) Reevaluation #1: 05/22/23 23:39 Medical records reviewed Reevaluation #2: 05/22/23 23:39 Patient symptoms improving with supplemental O2 and breathing treatment Reevaluation #3: 05/22/23 23:39 Patient informed of results and questions answered Reevaluation #4: Was pt. sent in by a medical professional or institution (, PA, OBSTETRICAL NURSE, urgent care, hospital, or retirement...) When possible be specific @ -no Did you speak to anyone other than the patient for history (EMS, parent, family, police, friend...)? What history was obtained from this source @ -no Did you review nursing and triage notes (agree or disagree)? Why? @ -agree Are old charts reviewed (outside hosp., previous admission, EMS record, old EKG, old radiological studies, urgent care reports/EKG's, retirement records)? Report findings @ -yes Differential Diagnosis (chest pain, altered mental status, abdominal pain women, abdominal pain men, vaginal bleeding, weakness, fever, dyspnea, syncope, headache, dizziness, GI bleed, back pain, seizure, CVA, palpatations, mental health, musculoskeletal)? @ -prior EKG interpreted by me (3pts min.). @ -yes X-rays interpreted by me (1pt min.). @ -yes negative for acute disease CT interpreted by me (1pt min.). @ -no U/S interpreted by me (1pt. min.). @ -no What testing was considered but not performed or refused? (CT, X-rays, U/S, labs)? Why? @ -none What meds were considered but not given or refused? Why? @ -none Did you discuss the management of the patient with other professionals (professionals i.e. , PA, OBSTETRICAL NURSE, lab, RT, psych nurse, social science research assistant, teaching supervisor, teacher, infantry officer, case folder)? Give summary @ -no Was smoking cessation discussed for >3mins.? @ -no Was critical care preformed (if so, how long)? @ -yes31 Were there social determinants of health that impacted care today? How? (Homelessness, low income, unemployed, alcoholism, drug addiction, transportation, low edu. Level, literacy, decrease access to med. care, [place] [facility], rehab)? @ -none Was there de-escalation of care discussed even if they declined (Discuss DNR or withdrawal of care, Hospice)? DNR status @ -no What co-morbidities impacted this encounter? (DM, HTN, Smoking, COPD, CAD, Cancer, CVA, ARF, Chemo, Hep., AIDS, mental health diagnosis, sleep apnea, morbid obesity)? @ -none Was patient admitted / discharged? Hospital course, mention meds given and route, prescriptions, significant lab abnormalities, going to OR and other pertinent info. @ - 63 female will be admitted for severe shortness of breath, COPD with hypoxia Admitted respiratory failure COPD with hypoxia Undiagnosed new problem with uncertain prognosis? @ -no Drug Therapy requiring intensive monitoring for toxicity (Heparin, Nitro, Insulin, Cardizem)? @ -no Were any procedures done? @ -no Diagnosis/symptom? @ - Acute, or Chronic, or Acute on Chronic? @ -Acute Uncomplicated (without systemic symptoms) or Complicated (systemic symptoms)? @ -Complicated Side effects of treatment? @ -no Exacerbation, Progression, or Severe Exacerbation? @ -exacerbation Poses a threat to life or bodily function? How? (Chest pain, [place], [place], pneumonia, PE, COPD, DKA, ARF, appy, cholecystitis, CVA, Diverticulitis, Homicidal, Suicidal, threat to staff... and all critical care pts) @ -yes yes with respiratory failure Reevaluation #5: Differential Dyspnea: Coronary syndrome, arrhythmia, tamponade, asthma, COPD, pulmonary embolism, pneumonia, pneumothorax, pulmonary effusion, anaphylaxis, diabetic ketoacidosis, flailed chest, pulmonary contusion, diaphragmatic rupture, anemia, neuromuscular, this is not meant to be an all-inclusive list. - Consultations Consultation #1: Spoke with sound who agrees to admit this patient Medical Decision Making - Medical Decision Making 63 female will be admitted for severe shortness of breath, COPD with hypoxia - Lab Data Result diagrams: 05/29/23 08:30 05/31/23 04:39 Lab Results 05/22/23 05/22/23 05/22/23 Range/Units 22:11 22:11 22:11 WBC 6.6 (3.8-10.6) k/uL RBC 4.34 (3.80-5.40) m/uL Hgb 12.2 (11.4-16.0) gm/dL Hct 38.2 (34.0-46.0) % MCV 87.9 (80.0-100.0) fL MCH 28.1 (25.0-35.0) pg MCHC 31.9 (31.0-37.0) g/dL RDW 15.0 (11.5-15.5) % Plt Count 194 (150-450) k/uL MPV 7.2 Neutrophils % 63 % Lymphocytes % 25 % Monocytes % 7 % Eosinophils % 3 % Basophils % 1 % Neutrophils # 4.1 (1.3-7.7) k/uL Lymphocytes # 1.6 (1.0-4.8) k/uL Monocytes # 0.4 (0-1.0) k/uL Eosinophils # 0.2 (0-0.7) k/uL Basophils # 0.0 (0-0.2) k/uL PT 11.1 (10.0-12.5) sec INR 1.0 (<1.2) APTT 24.4 (22.0-30.0) sec Sodium 140 (137-145) mmol/L Potassium 3.8 (3.5-5.1) mmol/L Chloride 97 L (98-107) mmol/L Carbon Dioxide 36 H (22-30) mmol/L Anion Gap 7 mmol/L BUN 7 (7-17) mg/dL Creatinine 0.65 (0.52-1.04) mg/dL Est GFR (CKD-EPI)AfAm >90 (>60 ml/min/1.73 sqM) Est GFR (CKD-EPI)NonAf >90 (>60 ml/min/1.73 sqM) Glucose 141 H (74-99) mg/dL Calcium 9.1 (8.4-10.2) mg/dL Magnesium 2.0 (1.6-2.3) mg/dL Total Bilirubin 0.3 (0.2-1.3) mg/dL AST 35 (14-36) U/L ALT 24 (4-34) U/L Alkaline Phosphatase 102 (38-126) U/L Troponin I (0.000-0.034) ng/mL NT-Pro-B Natriuret Pep 23 pg/mL Total Protein 7.3 (6.3-8.2) g/dL Albumin 4.3 (3.5-5.0) g/dL 05/22/23 Range/Units 22:11 WBC (3.8-10.6) k/uL RBC (3.80-5.40) m/uL Hgb (11.4-16.0) gm/dL Hct (34.0-46.0) % MCV (80.0-100.0) fL MCH (25.0-35.0) pg MCHC (31.0-37.0) g/dL RDW (11.5-15.5) % Plt Count (150-450) k/uL MPV Neutrophils % % Lymphocytes % % Monocytes % % Eosinophils % % Basophils % % Neutrophils # (1.3-7.7) k/uL Lymphocytes # (1.0-4.8) k/uL Monocytes # (0-1.0) k/uL Eosinophils # (0-0.7) k/uL Basophils # (0-0.2) k/uL PT (10.0-12.5) sec INR (<1.2) APTT (22.0-30.0) sec Sodium (137-145) mmol/L Potassium (3.5-5.1) mmol/L Chloride (98-107) mmol/L Carbon Dioxide (22-30) mmol/L Anion Gap mmol/L BUN (7-17) mg/dL Creatinine (0.52-1.04) mg/dL Est GFR (CKD-EPI)AfAm (>60 ml/min/1.73 sqM) Est GFR (CKD-EPI)NonAf (>60 ml/min/1.73 sqM) Glucose (74-99) mg/dL Calcium (8.4-10.2) mg/dL Magnesium (1.6-2.3) mg/dL Total Bilirubin (0.2-1.3) mg/dL AST (14-36) U/L ALT (4-34) U/L Alkaline Phosphatase (38-126) U/L Troponin I <0.012 (0.000-0.034) ng/mL NT-Pro-B Natriuret Pep pg/mL Total Protein (6.3-8.2) g/dL Albumin (3.5-5.0) g/dL - EKG Data -: EKG Interpreted by Me (EKG is sinus 80 IL 133 QRS 95 QTc 400) - Radiology Data Radiology results: report reviewed (Chest x-ray is negative for acute disease), image reviewed Critical Care Time Critical Care Time: Yes Total Critical Care Time: 31 Disposition Clinical Impression: Acute exacerbation of chronic obstructive airways disease, Dehydration, Pneumonitis, Acute exacerbation of chronic obstructive pulmonary disease, Hypoxia, Acute respiratory failure Disposition: ADMITTED IP TO THIS HOSP Condition: Stable Is patient prescribed a controlled substance at d/c from ED?: No Time of Disposition: 23:40
[2023-05-22 22:33] LABS: Basophils % (A) 1 %; Eosinophils # (A) 0.2 k/uL (0-0.7); Eosinophils % (A) 3 %; HCT 38.2 % (34.0-46.0); HGB 12.2 gm/dL (11.4-16.0); Lymphocytes # (A) 1.6 k/uL (1.0-4.8); Lymphocytes % (A) 25 %; MCH 28.1 pg (25.0-35.0); MCHC 31.9 g/dL (31.0-37.0); MCV 87.9 fL (80.0-100.0); Mean Platelet Volume 7.2; Monocytes # (A) 0.4 k/uL (0-1.0); Monocytes % (A) 7 %; Neutrophils # (A) 4.1 k/uL (1.3-7.7); Neutrophils % (A) 63 %; Platelet Count 194 k/uL (150-450); RBC 4.34 m/uL (3.80-5.40); WBC 6.6 k/uL (3.8-10.6)
[2023-05-22 22:35] LABS: Partial Thromboplastin Time 24.4 sec (22.0-30.0); Prothrombin Time 11.1 sec (10.0-12.5)
[2023-05-22] MEDS: IPRATROPIUM-ALBUTEROL 3 ML NEB INHALATION STA (22:35)
--- NOTE | 2023-05-22 22:40 | XR ---
EXAMINATION TYPE: XR chest 1V portable DATE OF EXAM: 05/22/2023 COMPARISON: Prior chest x-ray August 18, 2021 HISTORY: Shortness of breath TECHNIQUE: Single frontal view of the chest is obtained. FINDINGS: There is some chronic parenchymal changes bilaterally without suspicious new focal air spa ce opacity, pleural effusion, or pneumothorax seen. The cardiac silhouette size is stable and upper limits of normal. Surgical change to the thoracolumbar spine is partially imaged. IMPRESSION: Chronic changes without acute pulmonary process.
[2023-05-22 22:50] LABS: ALT 24 U/L (4-34); AST 35 U/L (14-36); African American GFR (CKD) >90 (>60 ml/min/1.73 sqM); Albumin 4.3 g/dL (3.5-5.0); Alkaline Phosphatase 102 U/L (38-126); Anion Gap 7 mmol/L; Blood Urea Nitrogen 7 mg/dL (7-17); Calcium 9.1 mg/dL (8.4-10.2); Carbon Dioxide 36 mmol/L (22-30); Chloride 97 mmol/L (98-107); Glucose 141 mg/dL (74-99); Non-African American GFR(CKD) >90 (>60 ml/min/1.73 sqM); Potassium 3.8 mmol/L (3.5-5.1); Sodium 140 mmol/L (137-145); Total Bilirubin 0.3 mg/dL (0.2-1.3); Total Protein 7.3 g/dL (6.3-8.2)
[2023-05-22 22:58] LABS: NT-Pro-B-Type Natriuretic Pept 23 pg/mL
[2023-05-22] MEDS ORDERED: MORPHINE SULFATE 4 MG/ML SYRINGE IV PRN (23:40)
[2023-05-22] MEDS ORDERED: ALBUTEROL NEBULIZED 2.5 MG/3 ML INHALATION PRN (23:40)
[2023-05-22] MEDS ORDERED: ONDANSETRON 4 MG/2 ML VIAL IVP PRN (23:40)
[2023-05-22] MEDS ORDERED: NALOXONE 0.4 MG/ML 1 ML VIAL IV PRN (23:40)
[2023-05-23] MEDS: IPRATROPIUM-ALBUTEROL 3 ML NEB INHALATION STA (00:45)
[2023-05-23] MEDS: SODIUM CHLORIDE 0.9% 1,000 ML IV SCH (03:06)
[2023-05-23] MEDS: risperiDONE 1 MG TAB PO SCH (03:06)
[2023-05-23] MEDS: MELATONIN 3 MG TABLET PO SCH (03:06)
[2023-05-23] MEDS: HYDROcodone/APAP 7.5-325MG 1 EACH TAB PO PRN (03:07)
[2023-05-23 03:57] LABS: Basophils % (A) 0 %; Eosinophils # (A) 0.1 k/uL (0-0.7); Eosinophils % (A) 2 %; HCT 36.4 % (34.0-46.0); HGB 11.2 gm/dL (11.4-16.0); Hypochromasia Slight; Lymphocytes # (A) 1.5 k/uL (1.0-4.8); Lymphocytes % (A) 22 %; MCH 27.2 pg (25.0-35.0); MCHC 30.8 g/dL (31.0-37.0); MCV 88.2 fL (80.0-100.0); Mean Platelet Volume 7.4; Monocytes # (A) 0.4 k/uL (0-1.0); Monocytes % (A) 7 %; Neutrophils # (A) 4.3 k/uL (1.3-7.7); Neutrophils % (A) 66 %; Platelet Count 166 k/uL (150-450); RBC 4.13 m/uL (3.80-5.40); RDW 15.2 % (11.5-15.5); WBC 6.5 k/uL (3.8-10.6)
[2023-05-23 04:15] LABS: ALT 21 U/L (4-34); AST 31 U/L (14-36); African American GFR (CKD) >90 (>60 ml/min/1.73 sqM); Albumin 3.9 g/dL (3.5-5.0); Alkaline Phosphatase 94 U/L (38-126); Anion Gap 8 mmol/L; Blood Urea Nitrogen 7 mg/dL (7-17); Calcium 9.1 mg/dL (8.4-10.2); Carbon Dioxide 34 mmol/L (22-30); Chloride 97 mmol/L (98-107); Glucose 147 mg/dL (74-99); Non-African American GFR(CKD) >90 (>60 ml/min/1.73 sqM); Phosphorus 3.8 mg/dL (2.5-4.5); Potassium 3.5 mmol/L (3.5-5.1); Sodium 139 mmol/L (137-145); Total Bilirubin 0.2 mg/dL (0.2-1.3); Total Protein 6.7 g/dL (6.3-8.2)
--- NOTE | 2023-05-23 05:34 | P.HPIM ---
History of Present Illness H&P Date: 05/23/23 Patient is a 63-year-old female with a PMH of COPD, hypertension, hyperlipidemia, seizure disorder, and hypothyroidism who presents to the emergency room with complaints of shortness of breath. Patient reports that she has been experiencing gradually worsening shortness of breath over the past 24 h ours. She reports a nonproductive cough and denied experiencing chest pain, nausea, vomiting, abdominal pain, diarrhea. Chest x-ray in the emergency room revealed no acute abnormalities with EKG leonid wing sinus rhythm at [address]/T wave changes noted as reviewed by me. Laboratory evaluation was remarkable for CO2 36 with glucose 141 and troponin less than 0.012. ED documentation reviewed and case discussed with ED provider. Review of systems: Pertinent positives and negatives as discussed in HPI, a complete review of systems was performed and all other systems are negative. Physical examination: Vital signs reviewed General: non toxic, no distress, appears at stated age, normal weight Derm: no unusual rashes/lesions, warm Head: atraumatic, normocephalic, symmetric Eyes: EOMI, no lid lag, anicteric sclera, pupils equal round reactive to light ENT: Nose and ears atraumatic Neck: No cervical lymphadenopathy, trachea midline, supple Mouth: no lip lesion, mucus membranes moist Cardiovascular: S1S2 reg, no murmur, positive dorsalis pedis pulse bilateral, no edema Lungs: Bilateral wheezing with some rhonchi, no accessory muscle use Abdominal: soft, nontender to palpation, no guarding Ext: muscle strength 5 out of 5 in all 4 extremities grossly, no gross muscle atrophy, no contractures, Neuro: CN II-XI grossly intact, no gross focal neuro deficits Psych: Alert, oriented, appropriate affect Assessment: Acute COPD exacerbation Chronic conditions: Hypertension, hyperlipidemia, seizure disorder, hypothyroidism Imaging: Chest x-ray in the emergency room revealed no acute abnormalities with EKG showing sinus rhythm at [address]/T wave changes noted as reviewed by me. Data Review: Laboratory evaluation was remarkable for CO2 36 with glucose 141 and troponin less than 0.012. Plan: Continue with DuoNebs and Solu-Medrol Pulmonary consulted Supplemental oxygen IV fluids normal saline 75 cc/h DVT prophylaxis: Lovenox subcu The patient is admitted with an anticipated greater than 2 midnight stay for evaluation of COPD exacerbation CODE STATUS: Full Code Discussed with: Patient Anticipated discharge place: Home Past Medical History Past Medical History: Asthma, Heart Failure, COPD, CVA/TIA, Dementia, Fibrom yalgia, GERD/Reflux, Hyperlipidemia, Hypertension, Osteoarthritis (OA), Pneumonia, Respiratory Disorder, Seizure Disorder, Thyroid Disorder Additional Past Medical History / Comment(s): Stage IV lung disease, home 02 4 liters n/c ATC, CVA in 2009 and 2013 with behavior changes, seizure disorder with last seizure 2013, back pain with bilateral sciatica, osteoporosis, peptic ulcer disease, hiatal hernia, vertigo in past, does"nt walk with staright back d/t rods in back/balance issues and falls, KLET[place] DE[place] bilaterally,UTI'S constipation LAST BM 4 DAYS AGO. History of Any Multi-Drug Resistant Organisms: MRSA Date of last positivie culture/infection: 1995 MDRO Source:: back (pt uncertain where she was treated) Past Surgical History: Adenoidectomy, Appendectomy, Back Surgery, Hysterectomy, Orthopedic Surgery, Tonsillectomy Additional Past Surgical History / Comment(s): back surgeries with rods in back, lt hip orif, colonoscopy, R eye tear duct repair.PICC LINE-SINCE REMOVED 09-26-15. Past Anesthesia/Blood Transfusion Reactions: No Reported Reaction Past Psychological History: Bipolar Past Alcohol Use History: None Reported Past Drug Use History: None Reported - Past Family History Father Family Medical History: Liver Disease Additional Family Medical History / Comment(s): from cirrhosis of the liver d/t etoh Mother Family Medical History: Congestive Heart Failure (CHF), Diabetes Mellitus, Osteoarthritis (OA) Additional Family Medical History / Comment(s): diverticulitis, osteoporosis Sister(s) Family Medical History: Liver Disease Additional Family Medical History / Comment(s): one sister at age 37 from cirrhosis of the liver-was heavy drinker Medications and Allergies Home Medications Medication Instructions Recorded Confirmed Type Budesonide [Pulmicort] 0.5 mg INHALATION RT-BID 10/24/15 05/23/23 History Furosemide [Lasix] 40 mg PO BID 10/24/15 05/23/23 History ALPRAZolam [Xanax] 1 mg PO HS 10/21/16 05/23/23 History Acetaminophen Tab [Tylenol] 650 mg PO Q6H PRN 10/21/16 05/23/23 History Levothyroxine Sodium [Synthroid] 100 mcg PO DAILY 10/21/16 05/23/23 History Multivitamins, Thera [Multivitamin 1 tab PO DAILY 10/21/16 05/23/23 History (formulary)] Potassium Chloride [Klor-Con 10] 20 meq PO BID 10/21/16 05/23/23 History Theophylline Anhydrous [Horace-24] 200 mg PO DAILY 10/21/16 05/23/23 History diphenhydrAMINE [Benadryl] 50 mg PO BID 10/21/16 08/26/21 History Albuterol Inhaler [Ventolin Hfa 1 - 2 puff INHALATION RT-Q6H PRN 08/26/21 05/23/23 Rx Inhaler] #1 unit Benzocaine/Menthol [Cepacol Sore 1 lozenge MM Q3H PRN 08/26/21 05/23/23 History Throat Lozenge] Cyclobenzaprine HCl 7.5 mg PO HS PRN 08/26/21 05/23/23 History DULoxetine HCL [Cymbalta] 30 mg PO DAILY 08/26/21 05/23/23 History Desoximetasone [Desoximetasone 1 applic TOPICAL BID 08/26/21 08/26/21 History 0.25%] Docusate [Colace] 200 mg PO DAILY 08/26/21 05/23/23 History Doxycycline Hyclate 100 mg PO Q12H 7 Days #14 tab 08/26/21 Rx Guaifenesin/Pseudoephedrne HCl 1 tab PO BID PRN 08/26/21 05/23/23 History [Mucinex D ER 1,200-120 mg Tab] HYDROcodone/APAP 7.5-325MG [[place] 1 tab PO Q6HR 08/26/21 05/23/23 History 7.5-325] Ipratropium-Albuterol Nebulize 3 ml INHALATION RT-Q6H PRN 08/26/21 05/23/23 History [Duoneb 0.5 mg-3 mg/3 ml Soln] Menthol [Biofreeze] 1 applic TOPICAL BID PRN 08/26/21 05/23/23 History Montelukast [Singulair] 10 mg PO HS 08/26/21 05/23/23 History Pantoprazole Sodium [Protonix] 20 mg PO DAILY 08/26/21 05/23/23 History Zolpidem Tartrate [Ambien] 10 mg PO HS 08/26/21 05/23/23 History atenoloL [Tenormin] 25 mg PO Q12H 08/26/21 05/23/23 History levETIRAcetam [Keppra Oral 900 mg PO Q12H 08/26/21 05/23/23 History Solution] lisinopriL [Zestril] 5 mg PO DAILY 08/26/21 05/23/23 History polyethylene glycoL 3350 [Miralax] 17 gm PO DAILY PRN 08/26/21 05/23/23 History predniSONE [Deltasone] 40 mg PO DAILY 5 Days #10 tab 08/26/21 Rx risperiDONE [RisperDAL] 3 mg PO HS 08/26/21 05/23/23 History ALPRAZolam [Xanax] 0.5 tab PO DAILY 05/23/23 05/23/23 History Melatonin 3 mg PO HS 05/23/23 05/23/23 History Allergies Allergy/AdvReac Type Severity Reaction Status Date / Time cephalexin monohydrate Allergy Unknown Verified 05/22/23 22:12 [From Keflex] erythromycin base Allergy Unknown Verified 05/22/23 22:12 [Erythromycin Base] Iodinated Contrast Media Allergy Unknown Verified 05/22/23 22:12 [Iodinated Contrast- Oral and IV Dye] Penicillins Allergy Unknown Verified 05/22/23 22:12 Sulfa (Sulfonamide Allergy Unknown Verified 05/22/23 22:12 Antibiotics) azithromycin [From Zithromax] AdvReac Nausea Verified 05/22/23 22:12 Opioids - Morphine Analogues AdvReac Confusion Verified 05/22/23 22:12 sulfamethoxazole AdvReac Nausea Verified 05/22/23 22:12 [From Bactrim] trimethoprim [From Bactrim] AdvReac Nausea Verified 05/22/23 22:12 Physical Exam Vitals: Vital Signs Temp Pulse Resp BP Pulse Ox 05/23/23 04:00 70 20 140/69 96 05/23/23 03:00 74 15 143/71 96 05/23/23 01:21 86 23 130/51 92 L 05/23/23 00:54 77 05/23/23 00:46 78 05/22/23 23:30 22 05/22/23 22:46 79 05/22/23 22:37 76 24 162/76 98 05/22/23 22:36 75 05/22/23 22:05 98.5 F 77 24 145/88 96 Intake and Output 05/22/23 05/22/23 05/23/23 14:59 22:59 06:59 Other: Weight 72.575 kg Results CBC & Chem 7: 05/23/23 03:44 05/23/23 03:44 Labs: Abnormal Lab Results - Last 24 Hours (Table) 05/22/23 05/23/23 05/23/23 Range/Units 22:11 03:44 03:44 Hgb 11.2 L (11.4-16.0) gm/dL MCHC 30.8 L (31.0-37.0) g/dL Chloride 97 L 97 L (98-107) mmol/L Carbon Dioxide 36 H 34 H (22-30) mmol/L Glucose 141 H 147 H (74-99) mg/dL
[2023-05-23] MEDS: methylPREDNISolone SOD SUCCI 125 MG/2 ML VIAL IV SCH (07:37)
[2023-05-23] MEDS: IPRATROPIUM-ALBUTEROL 3 ML NEB INHALATION SCH ×2 (09:06→20:46)
[2023-05-23] MEDS: ENOXAPARIN 40 MG/0.4 ML SYRINGE SQ SCH (09:14)
[2023-05-23] MEDS: PANTOPRAZOLE 40 MG/10 ML VIAL IV SCH (09:14)
--- NOTE | 2023-05-23 13:05 | P.CNPUL ---
History of Present Illness Consult date: 05/23/23 Reason for consult: dyspnea, COPD History of present illness: This is a consultation and the patient is being seen for shortness of breath. The patient is a 63-year-old female with known history of schizophrenia and she also has history of COPD and she has been hospitalized in the past for stroke exacerbation. She is coming in for increased dyspnea cough chest tightness and wheezing. She is a poor historian. She is currently on oxygen on 4 L of oxygen by nasal cannula. The chest x-ray at the time of admission shows no evidence of any acute cardiopulmonary abnormalities. The patient has scattered parenchymal changes without any focal airspace disease and those changes are essentially chronic. The patient's white cell count is at 6.5 with a hemoglobin 11.2. Serum bicarb is at 34 with a sodium level 139 and a potassium level of 3.5. LFTs are within normal limits. The patient is currently on 40 of oxygen by nasal cannula with a pulse ox of 96%. She is experiencing some cough and congestion. No reported aspiration. Review of Systems Constitutional: Reports chronic pain, Reports fever, Reports weakness, Denies chills Ears, nose, mouth and throat: Denies nasal congestion, Denies sinus pressure, Denies sore throat Cardiovascular: Reports shortness of breath, Denies edema, Denies leg edema Respiratory: Reports congestion, Reports cough, Reports cough with sputum, Reports home oxygen, Reports sleep apnea, Reports wheezing Gastrointestinal: Denies abdominal pain, Denies constipation, Denies diarrhea, Denies nausea, Denies vomiting Genitourinary: Denies nocturia, Denies urinary frequency Musculoskeletal: Reports muscle weakness, Denies frequent falls, Denies neck pain Integumentary: Denies rash, Denies sores Neurological: Reports confusion, Reports memory loss, Denies seizures Psychiatric: Reports anxiety, Reports depression, Reports hallucinations Endocrine: Denies nocturia, Denies polyuria Hematologic/Lymphatic: Denies easy bleeding, Denies easy bruising Allergic/Immunologic: Reports wheezing, Denies allergic rhinitis, Denies seasonal allergies Past Medical History Past Medical History: Asthma, Heart Failure, COPD, CVA/TIA, Dementia, Fibromyalgia, GERD/Reflux, Hyperlipidemia, Hypertension, Osteoarthritis (OA), Pneumonia, Respiratory Disorder, Seizure Disorder, Thyroid Disorder Additional Past Medical History / Comment(s): Stage IV lung disease, home 02 4 liters n/c ATC, CVA in 2009 and 2013 with behavior changes, seizure disorder with last seizure 2013, back pain with bilateral sciatica, osteoporosis, peptic ulcer disease, hiatal hernia, vertigo in past, does"nt walk with staright back d/t rods in back/balance issues and falls, [place] bilaterally,UTI'S constipation LAST BM 4 DAYS AGO. History of Any Multi-Drug Resistant Organisms: MRSA Date of last positivie culture/infection: 1995 MDRO Source:: back (pt uncertain where she was treated) Past Surgical History: Adenoidectomy, Appendectomy, Back Surgery, Hysterectomy, Orthopedic Surgery, Tonsillectomy Additional Past Surgical History / Comment(s): back surgeries with rods in back, lt hip orif, colonoscopy, R eye tear duct repair.PICC LINE-SINCE REMOVED 09-26-15. Past Anesthesia/Blood Transfusion Reactions: No Reported Reaction Past Psychological History: Bipolar Past Alcohol Use History: None Reported Past Drug Use History: None Reported - Past Family History Father Family Medical History: Liver Disease Additional Family Medical History / Comment(s): from cirrhosis of the liver d/t etoh Mother Family Medical History: Congestive Heart Failure (CHF), Diabetes Mellitus, Osteoarthritis (OA) Additional Family Medical History / Comment(s): diverticulitis, osteoporosis Sister(s) Family Medical History: Liver Disease Additional Family Medical History / Comment(s): one sister at age 37 from cirrhosis of the liver-was heavy drinker Medications and Allergies Home Medications Medication Instructions Recorded Confirmed Type Budesonide [Pulmicort] 0.5 mg INHALATION RT-BID 10/24/15 05/23/23 History Furosemide [Lasix] 40 mg PO BID 10/24/15 05/23/23 History ALPRAZolam [Xanax] 1 mg PO HS 10/21/16 05/23/23 History Acetaminophen Tab [Tylenol] 650 mg PO Q6H PRN 10/21/16 05/23/23 History Levothyroxine Sodium [Synthroid] 100 mcg PO DAILY 10/21/16 05/23/23 History Multivitamins, Thera [Multivitamin 1 tab PO DAILY 10/21/16 05/23/23 History (formulary)] Potassium Chloride [Klor-Con 10] 20 meq PO BID 10/21/16 05/23/23 History Theophylline Anhydrous [Horace-24] 200 mg PO DAILY 10/21/16 05/23/23 History diphenhydrAMINE [Benadryl] 50 mg PO BID 10/21/16 08/26/21 History Albuterol Inhaler [Ventolin Hfa 1 - 2 puff INHALATION RT-Q6H PRN 08/26/21 05/23/23 Rx Inhaler] #1 unit Benzocaine/Menthol [Cepacol Sore 1 lozenge MM Q3H PRN 08/26/21 05/23/23 History Throat Lozenge] Cyclobenzaprine HCl 7.5 mg PO HS PRN 08/26/21 05/23/23 History DULoxetine HCL [Cymbalta] 30 mg PO DAILY 08/26/21 05/23/23 History Desoximetasone [Desoximetasone 1 applic TOPICAL BID 08/26/21 08/26/21 History 0.25%] Docusate [Colace] 200 mg PO DAILY 08/26/21 05/23/23 History Doxycycline Hyclate 100 mg PO Q12H 7 Days #14 tab 08/26/21 Rx Guaifenesin/Pseudoephedrne HCl 1 tab PO BID PRN 08/26/21 05/23/23 History [Mucinex D ER 1,200-120 mg Tab] HYDROcodone/APAP 7.5-325MG [[place] 1 tab PO Q6HR 08/26/21 05/23/23 History 7.5-325] Ipratropium-Albuterol Nebulize 3 ml INHALATION RT-Q6H PRN 08/26/21 05/23/23 History [Duoneb 0.5 mg-3 mg/3 ml Soln] Menthol [Biofreeze] 1 applic TOPICAL BID PRN 08/26/21 05/23/23 History Montelukast [Singulair] 10 mg PO HS 08/26/21 05/23/23 History Pantoprazole Sodium [Protonix] 20 mg PO DAILY 08/26/21 05/23/23 History Zolpidem Tartrate [Ambien] 10 mg PO HS 08/26/21 05/23/23 History atenoloL [Tenormin] 25 mg PO Q12H 08/26/21 05/23/23 History levETIRAcetam [Keppra Oral 900 mg PO Q12H 08/26/21 05/23/23 History Solution] lisinopriL [Zestril] 5 mg PO DAILY 08/26/21 05/23/23 History polyethylene glycoL 3350 [Miralax] 17 gm PO DAILY PRN 08/26/21 05/23/23 History predniSONE [Deltasone] 40 mg PO DAILY 5 Days #10 tab 08/26/21 Rx risperiDONE [RisperDAL] 3 mg PO HS 08/26/21 05/23/23 History ALPRAZolam [Xanax] 0.5 tab PO DAILY 05/23/23 05/23/23 History Melatonin 3 mg PO HS 05/23/23 05/23/23 History Allergies Allergy/AdvReac Type Severity Reaction Status Date / Time cephalexin monohydrate Allergy Unknown Verified 05/22/23 22:12 [From Keflex] erythromycin base Allergy Unknown Verified 05/22/23 22:12 [Erythromycin Base] Iodinated Contrast Media Allergy Unknown Verified 05/22/23 22:12 [Iodinated Contrast- Oral and IV Dye] Penicillins Allergy Unknown Verified 05/22/23 22:12 Sulfa (Sulfonamide Allergy Unknown Verified 05/22/23 22:12 Antibiotics) azithromycin [From Zithromax] AdvReac Nausea Verified 05/22/23 22:12 Opioids - Morphine Analogues AdvReac Confusion Verified 05/22/23 22:12 sulfamethoxazole AdvReac Nausea Verified 05/22/23 22:12 [From Bactrim] trimethoprim [From Bactrim] AdvReac Nausea Verified 05/22/23 22:12 Physical Exam Vitals: Vital Signs Temp Pulse Pulse Resp BP BP Pulse Ox 05/23/23 09:14 75 05/23/23 09:06 72 96 05/23/23 08:20 98.7 F 72 18 132/73 93 L 05/23/23 07:00 72 13 117/56 98 05/23/23 04:00 70 20 140/69 96 05/23/23 03:00 74 15 143/71 96 05/23/23 01:21 86 23 130/51 92 L 05/23/23 00:54 77 05/23/23 00:46 78 05/22/23 23:30 22 05/22/23 22:46 79 05/22/23 22:37 76 24 162/76 98 03/23/24 22:36 75 05/22/23 22:05 98.5 F 77 24 145/88 96 Intake and Output 05/22/23 05/23/23 05/23/23 22:59 06:59 14:59 Other: Weight 72.575 kg Results - Laboratory Findings CBC and BMP: 05/23/23 03:44 05/23/23 03:44 ABG WBC 6.5 k/uL (3.8-10.6) 05/23/23 03:44 RBC 4.13 m/uL (3.80-5.40) 05/23/23 03:44 Hgb 11.2 gm/dL (11.4-16.0) L 05/23/23 03:44 Hct 36.4 % (34.0-46.0) 05/23/23 03:44 MCV 88.2 fL (80.0-100.0) 05/23/23 03:44 MCH 27.2 pg (25.0-35.0) 05/23/23 03:44 MCHC 30.8 g/dL (31.0-37.0) L 05/23/23 03:44 RDW 15.2 % (11.5-15.5) 05/23/23 03:44 Plt Count 166 k/uL (150-450) 05/23/23 03:44 MPV 7.4 05/23/23 03:44 Neutrophils % 66 % 05/23/23 03:44 Lymphocytes % 22 % 05/23/23 03:44 Monocytes % 7 % 05/23/23 03:44 Eosinophils % 2 % 05/23/23 03:44 Basophils % 0 % 05/23/23 03:44 Neutrophils # 4.3 k/uL (1.3-7.7) 05/23/23 03:44 Lymphocytes # 1.5 k/uL (1.0-4.8) 05/23/23 03:44 Monocytes # 0.4 k/uL (0-1.0) 05/23/23 03:44 Eosinophils # 0.1 k/uL (0-0.7) 05/23/23 03:44 Basophils # 0.0 k/uL (0-0.2) 05/23/23 03:44 Hypochromasia Slight 05/23/23 03:44 PT 11.1 sec (10.0-12.5) 05/22/23 22:11 INR 1.0 (<1.2) 05/22/23 22:11 APTT 24.4 sec (22.0-30.0) 05/22/23 22:11 Sodium 139 mmol/L (137-145) 05/23/23 03:44 Potassium 3.5 mmol/L (3.5-5.1) 05/23/23 03:44 Chloride 97 mmol/L (98-107) L 05/23/23 03:44 Carbon Dioxide 34 mmol/L (22-30) H 05/23/23 03:44 Anion Gap 8 mmol/L 05/23/23 03:44 BUN 7 mg/dL (7-17) 05/23/23 03:44 Creatinine 0.59 mg/dL (0.52-1.04) 05/23/23 03:44 Est GFR (CKD-EPI)AfAm >90 (>60 ml/min/1.73 sqM) 05/23/23 03:44 Est GFR (CKD-EPI)NonAf >90 (>60 ml/min/1.73 sqM) 05/23/23 03:44 Glucose 147 mg/dL (74-99) H 05/23/23 03:44 Calcium 9.1 mg/dL (8.4-10.2) 05/23/23 03:44 Phosphorus 3.8 mg/dL (2.5-4.5) 05/23/23 03:44 Magnesium 2.0 mg/dL (1.6-2.3) 05/23/23 03:44 Total Bilirubin 0.2 mg/dL (0.2-1.3) 05/23/23 03:44 AST 31 U/L (14-36) 05/23/23 03:44 ALT 21 U/L (4-34) 05/23/23 03:44 Alkaline Phosphatase 94 U/L (38-126) 05/23/23 03:44 Troponin I <0.012 ng/mL (0.000-0.034) 05/22/23 22:11 NT-Pro-B Natriuret Pep 23 pg/mL 05/22/23 22:11 Total Protein 6.7 g/dL (6.3-8.2) 05/23/23 03:44 Albumin 3.9 g/dL (3.5-5.0) 05/23/23 03:44 PT/INR, D-dimer PT 11.1 sec (10.0-12.5) 05/22/23 22:11 INR 1.0 (<1.2) 05/22/23 22:11 Abnormal lab findings: Abnormal Labs 05/22/23 05/23/23 05/23/23 22:11 03:44 03:44 Hgb 11.2 L MCHC 30.8 L Chloride 97 L 97 L Carbon Dioxide 36 H 34 H Glucose 141 H 147 H Assessment and Plan Plan: Acute COPD exacerbation, chest x-ray showed no acute abnormalities. No airspace disease or pneumonia. The viral screen to be completed Chronic COPD with chronic hypoxic respiratory failure maintained on 4 L of O2 nasal cannula, chronic hypercapnic respiratory failure is also suspected that the patient has chronic metabolic alkalosis. Morbid obesity History of CVA back in 2009 Dementia Schizophrenia Hard of hearing Limited mobility and the patient has issues with balance. The patient seems to be better than at this point in time. She has history of chronic back pain and sciatica Remote history of seizure disorder, currently inactive Hiatal hernia Peptic ulcer disease History of constipation Hypertension Hyperlipidemia Fibromyalgia Osteoarthritis Hypothyroidism Plan Agree on the current treatment of bronchodilators and steroids. Resume home medications. Obtain viral screen. Lovenox subcu for DVT prophylaxis. IV fluids at 75 cc an hour. Will continue to follow.
[2023-05-23] MEDS ORDERED: polyethylene glycoL 3350 17 GM POWD.PACK PO PRN (17:40)
[2023-05-23] MEDS ORDERED: BISMUTH SUBSALICYLATE 4,192 MG/240 ML BOTTLE PO PRN (17:40)
[2023-05-23] MEDS: ALPRAZolam 1 MG TAB PO SCH (18:42)
[2023-05-23] MEDS: HYDROcodone/APAP 7.5-325MG 1 EACH TAB PO SCH (18:42)
[2023-05-23] MEDS: FUROSEMIDE 40 MG TAB PO SCH (18:42)
[2023-05-23] MEDS: levETIRAcetam ORAL SOLN 500 MG/5 ML CUP PO SCH (21:45)
[2023-05-23] MEDS: MONTELUKAST 10 MG TAB PO SCH (21:45)
[2023-05-23] MEDS: atenoloL 25 MG TAB PO SCH (21:45)
[2023-05-23] MEDS: CYCLOBENZAPRINE 5 MG TAB PO PRN (21:52)
[2023-05-24] MEDS: LEVOTHYROXINE 100 MCG TAB PO SCH (06:14)
[2023-05-24] MEDS: LORATADINE 10 MG TAB PO SCH (08:24)
[2023-05-24] MEDS: PANTOPRAZOLE 40 MG TABLET PO SCH (08:24)
[2023-05-24] MEDS: ALPRAZolam 0.5 MG TAB PO SCH (08:24)
[2023-05-24] MEDS: MULTIVITAMINS, THERA 1 EACH TAB PO SCH (08:24)
[2023-05-24] MEDS: lisinopriL 5 MG TAB PO SCH (08:25)
[2023-05-24] MEDS: DOCUSATE 100 MG CAP PO SCH (08:25)
[2023-05-24] MEDS: DULoxetine HCL 30 MG CAPSULE.DR PO SCH (08:26)
[2023-05-24] MEDS: THEOPHYLLINE 24 HOUR 200 MG CAP.ER.24H PO SCH (08:26)
--- NOTE | 2023-05-24 11:32 | P.PN ---
Subjective Progress Note Date: 05/24/23 No new complaints today. Still requiring oxygen. General: non toxic, no distress, appears at stated age, normal weight Derm: no unusual rashes/lesions, warm Head: atraumatic, normocephalic, symmetric Eyes: EOMI, no lid lag, anicteric sclera, pupils equal round reactive to light ENT: Nose and ears atraumatic Neck: No cervical lymphadenopathy, trachea midline, supple Mouth: no lip lesion, mucus membranes moist Cardiovascular: S1S2 reg, no murmur, positive dorsalis pedis pulse bilateral, no edema Lungs: Bilateral wheezing with some rhonchi, no accessory muscle use Abdominal: soft, nontender to palpation, no guarding Ext: muscle strength 5 out of 5 in all 4 extremities grossly, no gross muscle atrophy, no contractures, Neuro: CN II-XI grossly intact, no gross focal neuro deficits Psych: Alert, oriented, appropriate affect Hospital Course: Patient is a 63-year-old female with a PMH of COPD, hypertension, hyperlipidemia, seizure disorder, and hypothyroidism who presented to the emergency room with complaints of shortness of breath. Chest x-ray in the emergency room revealed no acute abnormalities with EKG showing sinus rhythm at [address]/T wave changes noted as reviewed by me. Laboratory evaluation was remarkable for CO2 36 with glucose 141 and troponin less than 0.012. Assessment: Acute COPD exacerbation Chronic conditions: Hypertension, hyperlipidemia, seizure disorder, hypothyroidism Plan: Continue with DuoNebs and Solu-Medrol Pulmonary consulted Supplemental oxygen IV fluids normal saline 75 cc/h Add mucinex, flutter valve DVT prophylaxis: Lovenox subcu The patient is admitted with an anticipated greater than 2 midnight stay for evaluation of COPD exacerbation CODE STATUS: Full Code Discussed with: Patient Anticipated discharge place: Home Objective - Vital Signs Vital signs: Vital Signs Temp 98.0 F 05/24/23 07:15 Pulse 84 05/24/23 09:00 Resp 17 05/24/23 07:15 BP 110/61 05/24/23 07:15 Pulse Ox 93 L 05/24/23 07:15 FiO2 Intake & Output 05/23/23 05/24/23 05/24/23 18:59 06:59 18:59 Intake Total 900 400 Output Total 4 Balance 896 400 Weight 72.575 kg Intake: Intake, IV Titration 900 Amount Sodium Chloride 0.9% 1, 900 000 ml @ 75 mls/hr IV . [id number] [facility] Rx#:[id number] Oral 400 Output: Urine 4 Other: # Voids 4 2 - Labs CBC & Chem 7: 05/23/23 03:44 05/23/23 03:44
[2023-05-24] MEDS: guaiFENesin 600 MG TABLET.ER PO PRN (13:56)
[2023-05-24] MEDS: guaiFENesin SYRUP 100MG/5ML 200 MG/10 ML CUP PO PRN (13:56)
--- NOTE | 2023-05-24 15:47 | P.PN ---
Subjective Progress Note Date: 05/24/23 This is a consultation and the patient is being seen for shortness of breath. The patient is a 63-year-old female with known history of schizophrenia and she also has history of COPD and she has been hospitalized in the past for stroke exacerbation. She is coming in for increased dyspnea cough chest tightness and wheezing. She is a poor historian. She is currently on oxygen on 4 L of oxygen by nasal cannula. The chest x-ray at the time of admission shows no evidence of any acute cardiopulmonary abnormalities. The patient has scattered parenchymal changes without any focal airspace disease and those changes are essentially chronic. The patient's white cell count is at 6.5 with a hemoglobin 11.2. Serum bicarb is at 34 with a sodium level 139 and a potassium level of 3.5. LFTs are within normal limits. The patient is currently on 40 of oxygen by nasal cannula with a pulse ox of 96%. She is experiencing some cough and congestion. No reported aspiration. The patient is seen today May 24, 2023 in follow-up on the regular medical floor. She is currently sitting up in bed. Awake and alert in no acute distress. She is still bronchospastic and wheezing. Still with some chest ti ghtness and congestion. She is maintaining O2 saturations in the mid 90s on 4 L/min per nasal cannula. She is afebrile. Hemodynamically stable. No new labs today. She is continued on DuoNeb inhalations, Singulair, Mucinex, Solu-Medrol. Objective - Vital Signs Vital signs: Vital Signs Temp 98.3 F 05/24/23 14:00 Pulse 79 05/24/23 14:00 Resp 18 05/24/23 14:00 BP 138/75 05/24/23 14:00 Pulse Ox 96 05/24/23 14:00 FiO2 Intake & Output 05/23/23 05/24/23 05/24/23 18:59 06:59 18:59 Intake Total 900 400 Output Total 4 Balance 896 400 Weight 72.575 kg Intake: Intake, IV Titration 900 Amount Sodium Chloride 0.9% 1, 900 000 ml @ 75 mls/hr IV . [id number] [facility] Rx#:[id number] Oral 400 Output: Urine 4 Other: # Voids 4 2 - Exam GENERAL EXAM: Alert, pleasant 63-year-old female, on 4 L nasal cannula, comfortable in no apparent distress. HEAD: Normocephalic. EYES: Normal reaction of pupils, equal size. NOSE: Clear with pink turbinates. THROAT: No erythema or exudates. NECK: No masses, no JVD. CHEST: No chest wall deformity. LUNGS: Equal air entry with bilateral end expiratory wheeze, diminished. CVS: S1 and S2 normal with no audible murmur, regular rhythm. ABDOMEN: No hepatosplenomegaly, normal bowel sounds, no guarding or rigidity. SPINE: No scoliosis or deformity SKIN: No rashes CENTRAL NERVOUS SYSTEM: No focal deficits, tone is normal in all 4 extremities. EXTREMITIES: There is no peripheral edema. No clubbing, no cyanosis. Peripheral pulses are intact. - Labs CBC & Chem 7: 05/23/23 03:44 05/23/23 03:44 Assessment and Plan Assessment: Acute COPD exacerbation, chest x-ray showed no acute abnormalities. No airspace disease or pneumonia. The viral screen negative Chronic COPD with chronic hypoxic respiratory failure maintained on 4 L of O2 nasal cannula, chronic hypercapnic respiratory failure is also suspected that the patient has chronic metabolic alkalosis. Morbid obesity History of CVA back in 2009 Dementia Schizophrenia Hard of hearing Limited mobility and the patient has issues with balance. The patient seems to be better than at this point in time. She has history of chronic back pain and sciatica Remote history of seizure disorder, currently inactive Hiatal hernia Peptic ulcer disease History of constipation Hypertension Hyperlipidemia Fibromyalgia Osteoarthritis Hypothyroidism Plan: The patient was seen and evaluated Medications reviewed Still not back to baseline Continue the current treatment plan Add Symbicort Titrate the FiO2 as tolerated We will continue to follow I have personally seen and examined the patient, performed the documentation and the assessment and plan as written. Number of minutes spent on the visit: 10.
[2023-05-24] MEDS: ACETAMINOPHEN TAB 325 MG TAB PO PRN (20:36)
[2023-05-24] MEDS: SYMBICORT 160-4.5 MCG INHALER INHALATION SCH (20:46)
[2023-05-25] MEDS: IPRATROPIUM-ALBUTEROL 3 ML NEB INHALATION PRN (04:15)
[2023-05-25] MEDS: IPRATROPIUM-ALBUTEROL 3 ML NEB INHALATION SCH (09:22)
--- NOTE | 2023-05-25 13:00 | P.PN ---
Subjective Progress Note Date: 05/25/23 Patient is a 63-year-old female with a PMH of COPD on 3L home O2, hypertension, hyperlipidemia, seizure disorder, and hypothyroidism who presents to the emergency room with complaints of shortness of breath. Patient reports that she has been experiencing gradually worsening shortness of breath over the past 24 hours. She reports a nonproductive cough and denied experiencing chest pain, nausea, vomiting, abdominal pain, diarrhea. Chest x-ray in the emergency room revealed no acute abnormalities with EKG showing sinus rhythm at [address]/T wave changes. Laboratory evaluation was remarkable for CO2 36 with glucose 141 and troponin less than 0.012. Patient was admitted for COPD exacerbation. Started on bronchodilators and SoluMedrol. Pulmonary consulted. 05/24 Patient was seen and examined. Slight improvement in breathing. Still wheezing diffusely with poor air entry. On 4L NC. General: non toxic, no distress, appears at stated age Derm: warm, dry Head: atraumatic, normocephalic, symmetric Eyes: EOMI, no lid lag, anicteric sclera Mouth: no lip lesion, mucus membranes moist Cardiovascular: S1S2 reg, no murmur Lungs: Diffuse expiratory wheezing bilateral, no rhonchi, no rales , no accessory muscle use Ext: no gross muscle atrophy, no edema, no contractures Neuro: no focal neuro deficits Psych: Alert, oriented, appropriate affect Based on my assessment of this patient, this patient meets a high complexity level of care. Patient has an acute diagnosis of acute COPD exacerbation that poses a threat to life or bodily function. Acute on chronic hypoxic respiratory failure: Symbicort 2 INH BID. DuoNeb QID scheduled and PRN for SOB/wheezing. SoluMedrol 60 mg IV Q6H. Pulmonary on board. Acute on chronic COPD exacerbation Chronic conditions: Hypertension, Hyperlipidemia, Seizure disorder, Hypothyroidism CODE STATUS: FULL CODE. DVT Prophylaxis: Lovenox SQ GI Prophylaxis: Protonix PO Designated medical POA if patient is not able to make medical decisions for t hemselves: I have reviewed the following oracle iam consultant notes: Pulmonary I have reviewed the results of the following tests: I have ordered the following tests: I have discussed the care of this patient with the following independent historian: I have independently interpreted the following test below: I have discussed the management of this patient with the following physician: Objective - Vital Signs Vital signs: Vital Signs Temp 97.6 F 05/25/23 06:48 Pulse 76 05/25/23 12:17 Resp 17 05/25/23 06:48 BP 137/78 05/25/23 06:48 Pulse Ox 96 05/25/23 06:48 FiO2 Intake & Output 05/24/23 05/25/23 05/25/23 18:59 06:59 18:59 Intake Total 950 850 Balance 950 850 Intake: Intake, IV Titration 70 Amount Sodium Chloride 0.9% 1, 70 000 ml @ 10 mls/hr IV . Q24H [facility] Rx#:[id number] Oral 880 850 Other: # Voids 2 2 # Bowel Movements 1 - Labs CBC & Chem 7: 05/23/23 03:44 05/23/23 03:44
--- NOTE | 2023-05-25 14:50 | P.PN ---
Subjective Progress Note Date: 05/25/23 This is a consultation and the patient is being seen for shortness of breath. The patient is a 63-year-old female with known history of schizophrenia and she also has history of COPD and she has been hospitalized in the past for stroke exacerbation. She is coming in for increased dyspnea cough chest tightness and wheezing. She is a poor historian. She is currently on oxygen on 4 L of oxygen by nasal cannula. The chest x-ray at the time of admission shows no evidence of any acute cardiopulmonary abnormalities. The patient has scattered parenchymal changes without any focal airspace disease and those changes are essentially chronic. The patient's white cell count is at 6.5 with a hemoglobin 11.2. Serum bicarb is at 34 with a sodium level 139 and a potassium level of 3.5. LFTs are within normal limits. The patient is currently on 40 of oxygen by nasal cannula with a pulse ox of 96%. She is experiencing some cough and congestion. No reported aspiration. The patient is seen today May 24, 2023 in follow-up on the regular medical floor. She is currently sitting up in bed. Awake and alert in no acute distress. She is still bronchospastic and wheezing. Still with some chest ti ghtness and congestion. She is maintaining O2 saturations in the mid 90s on 4 L/min per nasal cannula. She is afebrile. Hemodynamically stable. No new labs today. She is continued on DuoNeb inhalations, Singulair, Mucinex, Solu-Medrol. Patient is seen today May 25, 2023 in follow-up on the regular medical floor. She is sitting up in bed. Awake and alert in no acute distress. She is main taining O2 saturations in the 90s on 4 L/min per nasal cannula. She remains quite bronchospastic and wheezy. No new labs today. She is continued on DuoNeb inhalations, Singulair, Mucinex, Solu-Medrol. Objective - Vital Signs Vital signs: Vital Signs Temp 97.6 F 05/25/23 06:48 Pulse 76 05/25/23 12:17 Resp 17 05/25/23 06:48 BP 137/78 05/25/23 06:48 Pulse Ox 96 05/25/23 06:48 FiO2 Intake & Output 05/24/23 05/25/23 05/25/23 18:59 06:59 18:59 Intake Total 950 850 Balance 950 850 Intake: Intake, IV Titration 70 Amount Sodium Chloride 0.9% 1, 70 000 ml @ 10 mls/hr IV . Q24H KARIME Rx#:[id number] Oral 880 850 Other: # Voids 2 2 # Bowel Movements 1 - Exam GENERAL EXAM: Alert, 63-year-old female, sitting up in bed, on 4 L nasal cannula, in no apparent distress. HEAD: Normocephalic. EYES: Normal reaction of pupils, equal size. NOSE: Clear with pink turbinates. THROAT: No erythema or exudates. NECK: No masses, no JVD. CHEST: No chest wall deformity. LUNGS: Equal air entry with bilateral end expiratory wheeze, diminished. CVS: S1 and S2 normal with no audible murmur, regular rhythm. ABDOMEN: No hepatosplenomegaly, normal bowel sounds, no guarding or rigidity. SPINE: No scoliosis or deformity SKIN: No rashes CENTRAL NERVOUS SYSTEM: No focal deficits, tone is normal in all 4 extremities. EXTREMITIES: There is no peripheral edema. No clubbing, no cyanosis. Peripheral pulses are intact. - Labs CBC & Chem 7: 05/23/23 03:44 05/23/23 03:44 Assessment and Plan Assessment: Acute COPD exacerbation, chest x-ray showed no acute abnormalities. No airspace disease or pneumonia. Viral screen negative Chronic COPD with chronic hypoxic respiratory failure maintained on 4 L of O2 nasal cannula, chronic hypercapnic respiratory failure is also suspected that the patient has chronic metabolic alkalosis Morbid obesity History of CVA back in 2009 Dementia Schizophrenia Hard of hearing Limited mobility and the patient has issues with balance. The patient seems to be better than at this point in time. She has history of chronic back pain and sciatica Remote history of seizure disorder, currently inactive Hiatal hernia Peptic ulcer disease History of constipation Hypertension Hyperlipidemia Fibromyalgia Osteoarthritis Hypothyroidism Plan: The patient was seen and evaluated Medications reviewed Improved but still not back to baseline Continue the current treatment plan Titrate the FiO2 as tolerated We will continue to follow I have personally seen and examined the patient, performed the documentation and the assessment and plan as written. Number of minutes spent on the visit: 10.
--- NOTE | 2023-05-26 11:09 | P.PN ---
Subjective Progress Note Date: 05/26/23 Patient is a 63-year-old female with a PMH of COPD on 3L home O2, hypertension, hyperlipidemia, seizure disorder, and hypothyroidism who presents to the emergency room with complaints of shortness of breath. Patient reports that she has been experiencing gradually worsening shortness of breath over the past 24 hours. She reports a nonproductive cough and denied experiencing chest pain, nausea, vomiting, abdominal pain, diarrhea. Chest x-ray in the emergency room revealed no acute abnormalities with EKG showing sinus rhythm at [address]/T wave changes. Laboratory evaluation was remarkable for CO2 36 with glucose 141 and troponin less than 0.012. Patient was admitted for COPD exacerbation. Started on bronchodilators and SoluMedrol. Pulmonary consulted. 05/24 Patient was seen and examined. Slight improvement in breathing. Still wheezing diffusely with poor air entry. On 4L NC. 05/25 Patient was seen and examined. Continues to be bronchospastic and wheezy. On 4L NC. Pulmonary note reviewed, not quite ready for discharge. General: non toxic, no distress, appears at stated age Derm: warm, dry Head: atraumatic, normocephalic, symmetric Eyes: EOMI, no lid lag, anicteric sclera Mouth: no lip lesion, mucus membranes moist Cardiovascular: S1S2 reg, no murmur Lungs: Diffuse expiratory wheezing bilateral, no rhonchi, no rales , no accessory muscle use Ext: no gross muscle atrophy, no edema, no contractures Neuro: no focal neuro deficits Psych: Alert, oriented, appropriate affect Based on my assessment of this patient, this patient meets a high complexity level of care. Patient has an acute diagnosis of acute COPD exacerbation that poses a threat to life or bodily function. Acute on chronic hypoxic respiratory failure: Symbicort 2 INH BID. DuoNeb QID scheduled and PRN for SOB/wheezing. SoluMedrol 60 mg IV Q6H. Pulmonary on board. Acute on chronic COPD exacerbation Chronic conditions: Hypertension, Hyperlipidemia, Seizure disorder, Hypothyroidism CODE STATUS: FULL CODE. DVT Prophylaxis: Lovenox SQ GI Prophylaxis: Protonix PO Designated medical POA if patient is not able to make medical decisions for themselves: I have reviewed the following wireless sales consultant notes: Pulmonary I have reviewed the results of the following tests: I have ordered the following tests: I have discussed the care of this patient with the following independent historian: I have independently interpreted the following test below: I have discussed the management of this patient with the following physician: Objective - Vital Signs Vital signs: Vital Signs Temp 97.6 F 05/26/23 06:55 Pulse 61 05/26/23 06:55 Resp 18 05/26/23 06:55 BP 153/87 05/26/23 06:55 Pulse Ox 96 05/26/23 06:55 FiO2 Intake & Output 05/25/23 05/26/23 05/26/23 18:59 06:59 18:59 Other: # Voids 2 1 - Labs CBC & Chem 7: 05/23/23 03:44 05/23/23 03:44
--- NOTE | 2023-05-26 14:20 | P.PN ---
Subjective Progress Note Date: 05/26/23 This is a consultation and the patient is being seen for shortness of breath. The patient is a 63-year-old female with known history of schizophrenia and she also has history of COPD and she has been hospitalized in the past for stroke exacerbation. She is coming in for increased dyspnea cough chest tightness and wheezing. She is a poor historian. She is currently on oxygen on 4 L of oxygen by nasal cannula. The chest x-ray at the time of admission shows no evidence of any acute cardiopulmonary abnormalities. The patient has scattered parenchymal changes without any focal airspace disease and those changes are essentially chronic. The patient's white cell count is at 6.5 with a hemoglobin 11.2. Serum bicarb is at 34 with a sodium level 139 and a potassium level of 3.5. LFTs are within normal limits. The patient is currently on 40 of oxygen by nasal cannula with a pulse ox of 96%. She is experiencing some cough and congestion. No reported aspiration. The patient is seen today May 24, 2023 in follow-up on the regular medical floor. She is currently sitting up in bed. Awake and alert in no acute distress. She is still bronchospastic and wheezing. Still with some chest ti ghtness and congestion. She is maintaining O2 saturations in the mid 90s on 4 L/min per nasal cannula. She is afebrile. Hemodynamically stable. No new labs today. She is continued on DuoNeb inhalations, Singulair, Mucinex, Solu-Medrol. Patient is seen today May 25, 2023 in follow-up on the regular medical floor. She is sitting up in bed. Awake and alert in no acute distress. She is main taining O2 saturations in the 90s on 4 L/min per nasal cannula. She remains quite bronchospastic and wheezy. No new labs today. She is continued on DuoNeb inhalations, Singulair, Mucinex, Solu-Medrol. The patient is seen today May 26, 2023 in follow-up on the regular medical floor. She is awake and alert in no acute distress. Sitting up at the bedside. Maintaining good O2 saturations in the 90s on 2 L/min per nasal cannula. She is afebrile. Hemodynamically stable. Still somewhat bronchospastic and wheezing. Still not back to her baseline. She remains on DuoNeb inhalation, Symbicort, Singulair, theophylline, Solu-Medrol. She remains on oral diuretics. Lovenox for DVT prophylaxis. Objective - Vital Signs Vital signs: Vital Signs Temp 97.5 F L 05/26/23 10:55 Pulse 68 05/26/23 12:32 Resp 16 05/26/23 10:55 BP 148/76 05/26/23 10:55 Pulse Ox 96 05/26/23 10:55 FiO2 Intake & Output 05/25/23 05/26/23 05/26/23 18:59 06:59 18:59 Other: Voiding Method Toilet # Voids 2 1 - Exam GENERAL EXAM: Awake, alert 63-year-old female, on 4 L nasal cannula, in no apparent distress. HEAD: Normocephalic. EYES: Normal reaction of pupils, equal size. NOSE: Clear with pink turbinates. THROAT: No erythema or exudates. NECK: No masses, no JVD. CHEST: No chest wall deformity. LUNGS: Equal air entry with bilateral end expiratory wheeze, diminished. CVS: S1 and S2 normal with no audible murmur, regular rhythm. ABDOMEN: No hepatosplenomegaly, normal bowel sounds, no guarding or rigidity. SPINE: No scoliosis or deformity SKIN: No rashes CENTRAL NERVOUS SYSTEM: No focal deficits, tone is normal in all 4 extremities. EXTREMITIES: There is no peripheral edema. No clubbing, no cyanosis. Peripheral pulses are intact. - Labs CBC & Chem 7: 05/23/23 03:44 05/23/23 03:44 Assessment and Plan Assessment: Acute COPD exacerbation, chest x-ray showed no acute abnormalities. No airspace disease or pneumonia. Viral screen negative Chronic COPD with chronic hypoxic respiratory failure maintained on 4 L of O2 nasal cannula, chronic hypercapnic respiratory failure is also suspected that the patient has chronic metabolic alkalosis Morbid obesity History of CVA back in 2009 Dementia Schizophrenia Hard of hearing Limited mobility and the patient has issues with balance. The patient seems to be better than at this point in time. She has history of chronic back pain and sciatica Remote history of seizure disorder, currently inactive Hiatal hernia Peptic ulcer disease History of constipation Hypertension Hyperlipidemia Fibromyalgia Osteoarthritis Hypothyroidism Plan: The patient was seen and evaluated Medications reviewed Continue the current treatment plan Titrate the FiO2 as tolerated Increase her activity as tolerated We will continue to follow I have personally seen and examined the patient, performed the documentation and the assessment and plan as written. Number of minutes spent on the visit: 10.
[2023-05-27 10:35] LABS: HCT 41.7 % (34.0-46.0); HGB 12.3 gm/dL (11.4-16.0); Hypochromasia Moderate; MCH 26.8 pg (25.0-35.0); MCHC 29.5 g/dL (31.0-37.0); MCV 91.1 fL (80.0-100.0); Mean Platelet Volume 7.7; Platelet Count 254 k/uL (150-450); RBC 4.58 m/uL (3.80-5.40); RDW 14.7 % (11.5-15.5); WBC 9.1 k/uL (3.8-10.6)
[2023-05-27 11:06] LABS: ALT 32 U/L (4-34); AST 28 U/L (14-36); African American GFR (CKD) >90 (>60 ml/min/1.73 sqM); Albumin/Globulin Ratio 1.3; Alkaline Phosphatase 85 U/L (38-126); Anion Gap 9 mmol/L; Blood Urea Nitrogen 14 mg/dL (7-17); Carbon Dioxide 36 mmol/L (22-30); Chloride 93 mmol/L (98-107); Glucose 302 mg/dL (74-99); Magnesium 2.3 mg/dL (1.6-2.3); Non-African American GFR(CKD) >90 (>60 ml/min/1.73 sqM); Potassium 3.7 mmol/L (3.5-5.1); Sodium 138 mmol/L (137-145); Total Bilirubin 0.4 mg/dL (0.2-1.3)
--- NOTE | 2023-05-27 14:32 | P.PN ---
Subjective Progress Note Date: 05/27/23 Hospital course: Patient is a very pleasant 63-year-old female with a past medical history of advanced COPD 4 L home oxygen dependent, HFpEF, hypertension, hyperlipidemia, hypothyroidism, schizophrenia, bipolar disorder and seizure disorder. She presented to the hospital on 05/22/2023 with a chief complaint of worsening shortness of breath. She underwent evaluation in the emergency department. Vital signs upon arrival show blood pressure 145/88, heart rate 77, respiratory rate 24, temp 98.5 F, and SpO2 of 96% on 3 L. EKG was completed showing normal sinus rhythm at 80 bpm. Chest x-ray completed showing chronic changes of lung disease but negative for acute cardiopulmonary process. Labs were completed and reviewed. CBC was unremarkable. BMP revealing metabolic alkalosis with chloride of 97, bicarb of 36, and anion gap of 7. Blood glucose 141. Liver profile unremarkable. Magnesium normal findings at 2.0. Troponin less than 0.012 and proBNP of 23. Influenza A, influenza B, RSV, and COVID were negative. Patient was admitted under services with consultation to pulmonology. Physical exam: Patient seen and fully evaluated at bedside this morning. She reports continued shortness of breath and coarse cough unable to bring up/produce sputum. . Vital signs reviewed and stable. General: Nontoxic, no distress and appears stated age. Derm: Skin warm and dry, normal coloration for ethnicity. Head: Atraumatic, normocephalic and symmetric. Eyes: EOMs intact, no lid lag, and anicteric sclera Mouth: no lip lesions, mucus membranes moist Cardiovascular: regular rate and rhythm with normal S1S2, no murmur, positive posterior tibial pulses bilaterally, and cap refill < 2 seconds. Lungs: Respirations even, regular, and unlabored on room air. Lungs diminished with soft expiratory wheezes. Coarse cough present. Abdominal: soft, nontender to palpation, no guarding, no appreciable organomegaly Ext: ROM intact. No gross muscle atrophy, no edema, no contractures Neuro: Speech clear, face symmetrical and CN II-XII grossly intact with no noted focal neuro deficits Psych: Alert and oriented to person, place, time, and situation. Appropriate and pleasant affect. Assessment and Plan of Care: Acute on chronic respiratory failure COPD with chronic hypoxic respiratory failure Chronic diastolic heart failure -Pulmonology following, taking patient for bronchoscopy with BAL -Oxygenation to be administered and titrated as needed to maintain SPO2 equal to or greater than 90%, patient's baseline O2 is 4 L -Order placed for flutter valve with instruction -Telemetry monitoring. -Monitor pulse-oximetry -Duonebs scheduled 4 times daily and as needed for SOB and/or wheezing -Incentive Spirometry -Steroids: Solu-Medrol 60 mg IVP every 6 hours -Continue Symbicort, Singulair, and Theophylline. -Continue Lasix 40 mg twice daily. -Lovenox for DVT prophylaxis. Hypertension Continue atenolol 25 mg twice daily and lisinopril 5 mg daily. Hypothyroidism Continue daily medication regimen with levothyroxine 100 mcg daily. Bipolar disorder Schizophrenia Continue psychiatric medication regimen with Xanax 0.5 mg daily and 1 mg nightly, Cymbalta 30 mg daily, and risperidone 3 mg nightly. Data and imaging reviewed: Morning labs reviewed. CBC unremarkable. BMP showing hypochloremia with chloride of 93 and hypercarbia with bicarb of 36. Liver profile unremarkable. Magnesium 2.3. Vital signs reviewed. Blood pressure 144/74, heart rate 67, respiratory rate 17, temp 97.8 F, and SpO2 of 96% on 4 L. CODE STATUS: Full code DVT prophylaxis: Lovenox Anticipated discharge date: Clinical course to determine Anticipated discharge place: Home Patient was seen independently by Nurse Pracitioner. This document was prepared using [employer] dictation software. Please allow for errors in grinder set up operator, while rare they do occur. Ghulam Hahn KARDEX CLERK rendered care for this patient independently, reviewed the findings and plan as documented in the note above. I did not physically speak with or examine the patient on this date. Objective - Vital Signs Vital signs: Vital Signs Temp 97.8 F 05/27/23 07:50 Pulse 67 05/27/23 07:50 Resp 17 05/27/23 07:50 BP 144/74 05/27/23 07:50 Pulse Ox 96 05/27/23 07:50 FiO2 Intake & Output 05/26/23 05/27/23 05/27/23 18:59 06:59 18:59 Intake Total 1440 Balance 1440 Intake: Oral 1440 Other: Voiding Method Toilet Toilet # Voids 4 3 - Labs CBC & Chem 7: 05/27/23 08:43 05/27/23 08:43
--- NOTE | 2023-05-27 15:31 | P.PN ---
Subjective Progress Note Date: 05/27/23 This is a consultation and the patient is being seen for shortness of breath. The patient is a 63-year-old female with known history of schizophrenia and she also has history of COPD and she has been hospitalized in the past for stroke exacerbation. She is coming in for increased dyspnea cough chest tightness and wheezing. She is a poor historian. She is currently on oxygen on 4 L of oxygen by nasal cannula. The chest x-ray at the time of admission shows no evidence of any acute cardiopulmonary abnormalities. The patient has scattered parenchymal changes without any focal airspace disease and those changes are essentially chronic. The patient's white cell count is at 6.5 with a hemoglobin 11.2. Serum bicarb is at 34 with a sodium level 139 and a potassium level of 3.5. LFTs are within normal limits. The patient is currently on 40 of oxygen by nasal cannula with a pulse ox of 96%. She is experiencing some cough and congestion. No reported aspiration. The patient is seen today May 24, 2023 in follow-up on the regular medical floor. She is currently sitting up in bed. Awake and alert in no acute distress. She is still bronchospastic and wheezing. Still with some chest ti ghtness and congestion. She is maintaining O2 saturations in the mid 90s on 4 L/min per nasal cannula. She is afebrile. Hemodynamically stable. No new labs today. She is continued on DuoNeb inhalations, Singulair, Mucinex, Solu-Medrol. Patient is seen today May 25, 2023 in follow-up on the regular medical floor. She is sitting up in bed. Awake and alert in no acute distress. She is main taining O2 saturations in the 90s on 4 L/min per nasal cannula. She remains quite bronchospastic and wheezy. No new labs today. She is continued on DuoNeb inhalations, Singulair, Mucinex, Solu-Medrol. The patient is seen today May 26, 2023 in follow-up on the regular medical floor. She is awake and alert in no acute distress. Sitting up at the bedside. Maintaining good O2 saturations in the 90s on 2 L/min per nasal cannula. She is afebrile. Hemodynamically stable. Still somewhat bronchospastic and wheezing. Still not back to her baseline. She remains on DuoNeb inhalation, Symbicort, Singulair, theophylline, Solu-Medrol. She remains on oral diuretics. Lovenox for DVT prophylaxis. The patient is seen today May 27, 2023 in follow-up on the regular medical floor. She is sitting up in bed. Awake and alert in no acute distress. She has been slow to progress. Still with cough and congestion. Unable to expectorate her mucus. She is maintaining good O2 saturations in the upper 90s on 4 L/min per nasal cannula. Afebrile. White count 9.1. Hemoglobin 12.3. Platelets 254. Sodium 138. Potassium 3.7. Bicarb 36. BUN 14. Creatinine 0.67. Glucose 302. She remains on DuoNeb inhalation, Symbicort, Singulair, theophylline, Solu-Medrol. She remains on oral diuretics. Lovenox for DVT prophylaxis. Objective - Vital Signs Vital signs: Vital Signs Temp 97.7 F 05/27/23 14:00 Pulse 77 05/27/23 14:00 Resp 18 05/27/23 14:00 BP 167/81 05/27/23 14:00 Pulse Ox 94 L 05/27/23 14:00 FiO2 Intake & Output 05/26/23 05/27/23 05/27/23 18:59 06:59 18:59 Intake Total 1440 Balance 1440 Intake: Oral 1440 Other: Voiding Method Toilet Toilet # Voids 4 3 - Exam GENERAL EXAM: Awake, 63-year-old female, sitting up in bed, on 4 L nasal cannula, in no apparent distress. HEAD: Normocephalic. EYES: Normal reaction of pupils, equal size. NOSE: Clear with pink turbinates. THROAT: No erythema or exudates. NECK: No masses, no JVD. CHEST: No chest wall deformity. LUNGS: Equal air entry with bilateral end expiratory wheeze, diminished. CVS: S1 and S2 normal with no audible murmur, regular rhythm. ABDOMEN: No hepatosplenomegaly, normal bowel sounds, no guarding or rigidity. SPINE: No scoliosis or deformity SKIN: No rashes CENTRAL NERVOUS SYSTEM: No focal deficits, tone is normal in all 4 extremities. EXTREMITIES: There is no peripheral edema. No clubbing, no cyanosis. Peripheral pulses are intact. - Labs CBC & Chem 7: 05/27/23 08:43 05/27/23 08:43 Labs: Abnormal Lab Results - Last 24 Hours (Table) 05/27/23 05/27/23 Range/Units 08:43 08:43 MCHC 29.5 L (31.0-37.0) g/dL Chloride 93 L (98-107) mmol/L Carbon Dioxide 36 H (22-30) mmol/L Glucose 302 H (74-99) mg/dL Assessment and Plan Assessment: Acute COPD exacerbation, chest x-ray showed no acute abnormalities. No airspace disease or pneumonia. Viral screen negative Chronic COPD with chronic hypoxic respiratory failure maintained on 4 L of O2 nasal cannula, chronic hypercapnic respiratory failure is also suspected that the patient has chronic metabolic alkalosis Morbid obesity History of CVA back in 2009 Dementia Schizophrenia Hard of hearing Limited mobility and the patient has issues with balance. The patient seems to be better than at this point in time. She has history of chronic back pain and sciatica Remote history of seizure disorder, currently inactive Hiatal hernia Peptic ulcer disease History of constipation Hypertension Hyperlipidemia Fibromyalgia Osteoarthritis Hypothyroidism Plan: The patient was seen and evaluated Medications and labs reviewed She has been slow to progress Plan for bronchoscopy with BAL in a.m. Continue the current treatment plan Titrate the FiO2 as tolerated Increase her activity as tolerated We will continue to follow I have personally seen and examined the patient, performed the documentation and the assessment and plan as written. Number of minutes spent on the visit: 10.
[2023-05-28] MEDS ORDERED: GLYCOPYRROLATE 0.2 MG/ML 2 ML VIAL ONE (13:46)
[2023-05-28] MEDS ORDERED: LIDOCAINE 1% INJ 10MG/ML (20 ML MDV) ONE (13:46)
[2023-05-28] MEDS ORDERED: PROPOFOL 10 MG/ML 20 ML VIAL IV ONE (13:46)
[2023-05-28] MEDS: LIDOCAINE 2% INJ 20 MG/ML INTRATRACH ONE (14:06)
[2023-05-28] MEDS: SODIUM CHLORIDE 0.9% 500 ML 500 ML IV ONE (14:09)
--- NOTE | 2023-05-28 15:00 | P.PN ---
Subjective Progress Note Date: 05/28/23 This is a consultation and the patient is being seen for shortness of breath. The patient is a 63-year-old female with known history of schizophrenia and she also has history of COPD and she has been hospitalized in the past for stroke exacerbation. She is coming in for increased dyspnea cough chest tightness and wheezing. She is a poor historian. She is currently on oxygen on 4 L of oxygen by nasal cannula. The chest x-ray at the time of admission shows no evidence of any acute cardiopulmonary abnormalities. The patient has scattered parenchymal changes without any focal airspace disease and those changes are essentially chronic. The patient's white cell count is at 6.5 with a hemoglobin 11.2. Serum bicarb is at 34 with a sodium level 139 and a potassium level of 3.5. LFTs are within normal limits. The patient is currently on 40 of oxygen by nasal cannula with a pulse ox of 96%. She is experiencing some cough and congestion. No reported aspiration. The patient is seen today May 24, 2023 in follow-up on the regular medical floor. She is currently sitting up in bed. Awake and alert in no acute distress. She is still bronchospastic and wheezing. Still with some chest ti ghtness and congestion. She is maintaining O2 saturations in the mid 90s on 4 L/min per nasal cannula. She is afebrile. Hemodynamically stable. No new labs today. She is continued on DuoNeb inhalations, Singulair, Mucinex, Solu-Medrol. Patient is seen today May 25, 2023 in follow-up on the regular medical floor. She is sitting up in bed. Awake and alert in no acute distress. She is main taining O2 saturations in the 90s on 4 L/min per nasal cannula. She remains quite bronchospastic and wheezy. No new labs today. She is continued on DuoNeb inhalations, Singulair, Mucinex, Solu-Medrol. The patient is seen today May 26, 2023 in follow-up on the regular medical floor. She is awake and alert in no acute distress. Sitting up at the bedside. Maintaining good O2 saturations in the 90s on 2 L/min per nasal cannula. She is afebrile. Hemodynamically stable. Still somewhat bronchospastic and wheezing. Still not back to her baseline. She remains on DuoNeb inhalation, Symbicort, Singulair, theophylline, Solu-Medrol. She remains on oral diuretics. Lovenox for DVT prophylaxis. The patient is seen today May 27, 2023 in follow-up on the regular medical floor. She is sitting up in bed. Awake and alert in no acute distress. She has been slow to progress. Still with cough and congestion. Unable to expectorate her mucus. She is maintaining good O2 saturations in the upper 90s on 4 L/min per nasal cannula. Afebrile. White count 9.1. Hemoglobin 12.3. Platelets 254. Sodium 138. Potassium 3.7. Bicarb 36. BUN 14. Creatinine 0.67. Glucose 302. She remains on DuoNeb inhalation, Symbicort, Singulair, theophylline, Solu-Medrol. She remains on oral diuretics. Lovenox for DVT prophylaxis. The patient is seen today May 28, 2023 in follow-up on the regular medical floor. She is resting comfortably in bed. Awake and alert in no acute distress. Continues to maintain good O2 saturations in the 90s on 4 L/min per nasal cannula. Plan is for bronchoscopy with BAL today. She remains on DuoNeb inhalation, Symbicort, Singulair, theophylline, Solu-Medrol. She remains on oral diuretics. Lovenox for DVT prophylaxis. Objective - Vital Signs Vital signs: Vital Signs Temp 97.6 F 05/28/23 14:25 Pulse 74 05/28/23 14:25 Resp 18 05/28/23 14:25 BP 144/80 05/28/23 14:25 Pulse Ox 93 L 05/28/23 14:25 FiO2 Intake & Output 05/27/23 05/28/23 05/28/23 18:59 06:59 18:59 Intake Total 50 Balance 50 Intake: IV 50 Other: # Voids 3 - Exam GENERAL EXAM: Awake, alert 63-year-old female, on 4 L nasal cannula, in no apparent distress. HEAD: Normocephalic. EYES: Normal reaction of pupils, equal size. NOSE: Clear with pink turbinates. THROAT: No erythema or exudates. NECK: No masses, no JVD. CHEST: No chest wall deformity. LUNGS: Equal air entry with bilateral end expiratory wheeze, diminished. CVS: S1 and S2 normal with no audible murmur, regular rhythm. ABDOMEN: No hepatosplenomegaly, normal bowel sounds, no guarding or rigidity. SPINE: No scoliosis or deformity SKIN: No rashes CENTRAL NERVOUS SYSTEM: No focal deficits, tone is normal in all 4 extremities. EXTREMITIES: There is no peripheral edema. No clubbing, no cyanosis. Peripheral pulses are intact. - Labs CBC & Chem 7: 05/27/23 08:43 05/27/23 08:43 Assessment and Plan Assessment: Acute COPD exacerbation, chest x-ray showed no acute abnormalities. No airspace disease or pneumonia. Viral screen negative. Bronchoscopy with BAL performed today May 28, 2023 Chronic COPD with chronic hypoxic respiratory failure maintained on 4 L of O2 na nola cannula, chronic hypercapnic respiratory failure is also suspected that the patient has chronic metabolic alkalosis Morbid obesity History of CVA back in 2009 Dementia Schizophrenia Hard of hearing Limited mobility and the patient has issues with balance. The patient seems to be better than at this point in time. She has history of chronic back pain and sciatica Remote history of seizure disorder, currently inactive Hiatal hernia Peptic ulcer disease History of constipation Hypertension Hyperlipidemia Fibromyalgia Osteoarthritis Hypothyroidism Plan: The patient was seen and evaluated Medications and labs reviewed Plan for bronchoscopy with BAL today Continue the current treatment plan Titrate the FiO2 as tolerated We will continue to follow I have personally seen and examined the patient, performed the documentation and the assessment and plan as written. Number of minutes spent on the visit: 10.
--- NOTE | 2023-05-28 15:21 | P.PN ---
Subjective Progress Note Date: 05/28/23 Hospital course: Patient is a very pleasant 63-year-old female with a past medical history of advanced COPD 4 L home oxygen dependent, HFpEF, hypertension, hyperlipidemia, hypothyroidism, schizophrenia, bipolar disorder and seizure disorder. She presented to the hospital on 05/22/2023 with a chief complaint of worsening shortness of breath. She underwent evaluation in the emergency department. Vital signs upon arrival show blood pressure 145/88, heart rate 77, respiratory rate 24, temp 98.5 F, and SpO2 of 96% on 3 L. EKG was completed showing normal sinus rhythm at 80 bpm. Chest x-ray completed showing chronic changes of lung disease but negative for acute cardiopulmonary process. Labs were completed and reviewed. CBC was unremarkable. BMP revealing metabolic alkalosis with chloride of 97, bicarb of 36, and anion gap of 7. Blood glucose 141. Liver profile unremarkable. Magnesium normal findings at 2.0. Troponin less than 0.012 and proBNP of 23. Influenza A, influenza B, RSV, and COVID were negative. Patient was admitted under services with consultation to pulmonology. Physical exam: Patient seen and fully evaluated at bedside this morning. She was sleeping and lying on her side but easily awoken via verbal stimuli. Patient reports continued shortness of breath and coarse cough unable to bring up/produce sputum and is scheduled for bronchoscopy with bronchioloalveolar lavage later today. Patient remains on 4 L O2 via nasal cannula. Vital signs reviewed and stable. General: Nontoxic, no distress and appears stated age. Derm: Skin warm and dry, normal coloration for ethnicity. Head: Atraumatic, normocephalic and symmetric. Eyes: EOMs intact, no lid lag, and anicteric sclera Mouth: no lip lesions, mucus membranes moist Cardiovascular: regular rate and rhythm with normal S1S2, no murmur, positive posterior tibial pulses bilaterally, and cap refill < 2 seconds. Lungs: Respirations even, regular, and unlabored on room air. Lungs diminished with soft expiratory wheezes. Coarse cough present. Abdominal: soft, nontender to palpation, no guarding, no appreciable organomegaly Ext: ROM intact. No gross muscle atrophy, no edema, no contractures Neuro: Speech clear, face symmetrical and CN II-XII grossly intact with no noted focal neuro deficits Psych: Alert and oriented to person, place, time, and situation. Appropriate and pleasant affect. Assessment and Plan of Care: Acute on chronic respiratory failure COPD with chronic hypoxic respiratory failure Chronic diastolic heart failure -Pulmonology following, taking patient for bronchoscopy with BAL -Oxygenation to be administered and titrated as needed to maintain SPO2 equal to or greater than 90%, patient's baseline O2 is 4 L -Order placed for flutter valve with instruction -Telemetry monitoring. -Monitor pulse-oximetry -Duonebs scheduled 4 times daily and as needed for SOB and/or wheezing -Incentive Spirometry -Steroids: Solu-Medrol 60 mg IVP every 6 hours -Continue Symbicort, Singulair, and Theophylline. -Continue Lasix 40 mg twice daily. -Lovenox for DVT prophylaxis. Hypertension Continue atenolol 25 mg twice daily and lisinopril 5 mg daily. Hypothyroidism Continue daily medication regimen with levothyroxine 100 mcg daily. Bipolar disorder Schizophrenia Continue psychiatric medication regimen with Xanax 0.5 mg daily and 1 mg nightly, Cymbalta 30 mg daily, and risperidone 3 mg nightly. Data and imaging reviewed: Vital signs reviewed. Blood pressure 126/71, heart rate 60, respiratory rate 17, temp 97.9 F, and SpO2 of 90% on 4 L at this time. CODE STATUS: Full code DVT prophylaxis: Lovenox Anticipated discharge date: Clinical course to determine Anticipated discharge place: Home Patient was seen independently by Nurse Pracitioner. This document was prepared using [employer] dictation software. Please allow for errors in minister helper, while rare they do occur. Ghulam Hahn NP rendered care for this patient independently, reviewed the findings and plan as documented in the note above. I did not physically speak with or examine the patient on this date. Objective - Vital Signs Vital signs: Vital Signs Temp 97.9 F 05/28/23 07:00 Pulse 60 05/28/23 07:00 Resp 17 05/28/23 07:00 BP 126/71 05/28/23 07:00 Pulse Ox 98 05/28/23 07:00 FiO2 Intake & Output 05/27/23 05/28/23 05/28/23 18:59 06:59 18:59 Other: # Voids 3 - Labs CBC & Chem 7: 05/29/23 08:30 05/29/23 08:30 Labs: Abnormal Lab Results - Last 24 Hours (Table) 05/27/23 05/27/23 Range/Units 08:43 08:43 MCHC 29.5 L (31.0-37.0) g/dL Chloride 93 L (98-107) mmol/L Carbon Dioxide 36 H (22-30) mmol/L Glucose 302 H (74-99) mg/dL
[2023-05-28 16:29] VITALS: BMI 30.2
[2023-05-28] MEDS: LACTATED RINGERS 1,000 ML IV SCH (17:24)
--- NOTE | 2023-05-28 20:20 | OP ---
OPERATIVE REPORT DATE OF SERVICE : PROCEDURES PERFORMED: Bronchoscopy and random bronchoalveolar lavage of the right upper lobe, right middle lobe, right lower lobe, left upper lobe lingula, and left lower lobe. PREOPERATIVE DIAGNOSES: Acute exacerbation of chronic obstructive pulmonary disease, tracheobronchitis, persistent cough, unable to clear secretions. POSTOPERATIVE DIAGNOSES: Acute exacerbation of chronic obstructive pulmonary disease, tracheobronchitis, persistent cough, unable to clear secretions and tracheomalacia. ANESTHESIA USED: IV conscious sedation. DESCRIPTION OF PROCEDURE: The patient was brought into the bronchoscopy suite, she was prepared according to the bronchoscopy protocol. She was placed in a supine position, O2 was applied via Ventimask. Then, we monitored her O2 saturation continuously. Blood pressure was intermittently monitored, cardiac rhythm was continuously monitored. After adequate IV conscious sedation, the bronchoscope was advanced through the Ventimask into the bite block area and I was able to visualize the vocal cords, which were noted to be patent. Lidocaine applied over the vocal cords, then the bronchoscope was advanced further down. Thorough examination was done of the trachea, right upper lobe, right middle lobe, right lower lobe, left upper lobe lingula, and left lower lobe. Scattered whitish mucoid secretions noted in airways bilaterally. These were lavaged until completely suctioned and cleared. There was no evidence of endobronchial tumors, but there was evidence of mild to moderate tracheomalacia. The fluid obtained was sent for different diagnostic studies. Procedure was well tolerated, no complications, the patient will be sent back to her room in stable condition. MMODL / IJN: [id number] /
[2023-05-29 05:32] LABS: Appearance,BF Cloudy (Clear); RBC, Body Fluid 888 /UL (0-2000)
[2023-05-29 09:08] LABS: HCT 43.9 % (34.0-46.0); HGB 13.1 gm/dL (11.4-16.0); Hypochromasia Moderate; MCH 27.2 pg (25.0-35.0); MCHC 29.9 g/dL (31.0-37.0); Mean Platelet Volume 7.5; Platelet Count 279 k/uL (150-450); RBC 4.83 m/uL (3.80-5.40); RDW 14.7 % (11.5-15.5); WBC 15.6 k/uL (3.8-10.6)
[2023-05-29 09:38] LABS: ALT 33 U/L (4-34); AST 27 U/L (14-36); African American GFR (CKD) >90 (>60 ml/min/1.73 sqM); Albumin 4.1 g/dL (3.5-5.0); Albumin/Globulin Ratio 1.4; Alkaline Phosphatase 76 U/L (38-126); Anion Gap 7 mmol/L; Blood Urea Nitrogen 24 mg/dL (7-17); Calcium 8.9 mg/dL (8.4-10.2); Carbon Dioxide 38 mmol/L (22-30); Chloride 92 mmol/L (98-107); Globulin 2.9 g/dL; Glucose 201 mg/dL (74-99); Magnesium 2.5 mg/dL (1.6-2.3); Non-African American GFR(CKD) 79 (>60 ml/min/1.73 sqM); Potassium 3.5 mmol/L (3.5-5.1); Sodium 137 mmol/L (137-145); Total Bilirubin 0.4 mg/dL (0.2-1.3)
--- NOTE | 2023-05-29 11:56 | P.PN ---
Subjective Progress Note Date: 05/29/23 Patient is a 63-year-old female with a PMH of COPD on 3L home O2, hypertension, hyperlipidemia, seizure disorder, and hypothyroidism who presents to the emergency room with complaints of shortness of breath. Patient reports that she has been experiencing gradually worsening shortness of breath over the past 24 hours. She reports a nonproductive cough and denied experiencing chest pain, nausea, vomiting, abdominal pain, diarrhea. Chest x-ray in the emergency room revealed no acute abnormalities with EKG showing sinus rhythm at [address]/T wave changes. Laboratory evaluation was remarkable for CO2 36 with glucose 141 and troponin less than 0.012. Patient was admitted for COPD exacerbation. Started on bronchodilators and SoluMedrol. Pulmonary consulted. Underwent bronchoscopy 05/27. 05/28 Patient was seen and examined. Improved breathing but considerable wheezing. CBC WBC 15.6. CMP Cl 92, bicarb 38, BUN 24, glu 201. Mag 2.5 General: non toxic, no distress, appears at stated age Derm: warm, dry Head: atraumatic, normocephalic, symmetric Eyes: EOMI, no lid lag, anicteric sclera Mouth: no lip lesion, mucus membranes moist Cardiovascular: S1S2 reg, no murmur Lungs: Diffuse expiratory wheezing bilateral, no rhonchi, no rales , no accessory muscle use Ext: no gross muscle atrophy, no edema, no contractures Neuro: no focal neuro deficits Psych: Alert, oriented, appropriate affect Based on my assessment of this patient, this patient meets a high complexity level of care. Patient has an acute diagnosis of acute COPD exacerbation that poses a threat to life or bodily function. Acute on chronic hypoxic respiratory failure: Symbicort 2 INH BID. DuoNeb QID scheduled and PRN for SOB/wheezing. SoluMedrol 60 mg IV Q6H. Pulmonary on board. Acute on chronic COPD exacerbation Chronic conditions: Hypertension, Hyperlipidemia, Seizure disorder, Hypothyroidism CODE STATUS: FULL CODE. DVT Prophylaxis: Lovenox SQ GI Prophylaxis: Protonix PO Designated medical POA if patient is not able to make medical decisions for themselves: I have reviewed the following production support consultant notes: Pulmonary I have reviewed the results of the following tests: CBC, BMP. Mag. I have ordered the following tests: I have discussed the care of this patient with the following independent historian: NAHOMY I have independently interpreted the following test below: I have discussed the management of this patient with the following physician: Objective - Vital Signs Vital signs: Vital Signs Temp 97.5 F L 05/29/23 07:16 Pulse 80 05/29/23 08:49 Resp 17 05/29/23 07:16 BP 125/69 05/29/23 07:16 Pulse Ox 95 05/29/23 08:40 FiO2 Intake & Output 05/28/23 05/29/23 05/29/23 18:59 06:59 18:59 Intake Total 50 Balance 50 Weight 72.575 kg Intake: IV 50 Other: # Voids 3 5 - Labs CBC & Chem 7: 05/29/23 08:30 05/29/23 08:30 Labs: Abnormal Lab Results - Last 24 Hours (Table) 05/28/23 05/29/23 05/29/23 Range/Units 14:06 08:30 08:30 WBC 15.6 H (3.8-10.6) k/uL MCHC 29.9 L (31.0-37.0) g/dL Chloride 92 L (98-107) mmol/L Carbon Dioxide 38 H (22-30) mmol/L BUN 24 H (7-17) mg/dL Glucose 201 H (74-99) mg/dL Magnesium 2.5 H (1.6-2.3) mg/dL Fluid Appearance Cloudy A (Clear)
--- NOTE | 2023-05-29 14:07 | P.PN ---
Subjective Progress Note Date: 05/29/23 This is a consultation and the patient is being seen for shortness of breath. The patient is a 63-year-old female with known history of schizophrenia and she also has history of COPD and she has been hospitalized in the past for stroke exacerbation. She is coming in for increased dyspnea cough chest tightness and wheezing. She is a poor historian. She is currently on oxygen on 4 L of oxygen by nasal cannula. The chest x-ray at the time of admission shows no evidence of any acute cardiopulmonary abnormalities. The patient has scattered parenchymal changes without any focal airspace disease and those changes are essentially chronic. The patient's white cell count is at 6.5 with a hemoglobin 11.2. Serum bicarb is at 34 with a sodium level 139 and a potassium level of 3.5. LFTs are within normal limits. The patient is currently on 40 of oxygen by nasal cannula with a pulse ox of 96%. She is experiencing some cough and congestion. No reported aspiration. The patient is seen today May 24, 2023 in follow-up on the regular medical floor. She is currently sitting up in bed. Awake and alert in no acute distress. She is still bronchospastic and wheezing. Still with some chest ti ghtness and congestion. She is maintaining O2 saturations in the mid 90s on 4 L/min per nasal cannula. She is afebrile. Hemodynamically stable. No new labs today. She is continued on DuoNeb inhalations, Singulair, Mucinex, Solu-Medrol. Patient is seen today May 25, 2023 in follow-up on the regular medical floor. She is sitting up in bed. Awake and alert in no acute distress. She is main taining O2 saturations in the 90s on 4 L/min per nasal cannula. She remains quite bronchospastic and wheezy. No new labs today. She is continued on DuoNeb inhalations, Singulair, Mucinex, Solu-Medrol. The patient is seen today May 26, 2023 in follow-up on the regular medical floor. She is awake and alert in no acute distress. Sitting up at the bedside. Maintaining good O2 saturations in the 90s on 2 L/min per nasal cannula. She is afebrile. Hemodynamically stable. Still somewhat bronchospastic and wheezing. Still not back to her baseline. She remains on DuoNeb inhalation, Symbicort, Singulair, theophylline, Solu-Medrol. She remains on oral diuretics. Lovenox for DVT prophylaxis. The patient is seen today May 27, 2023 in follow-up on the regular medical floor. She is sitting up in bed. Awake and alert in no acute distress. She has been slow to progress. Still with cough and congestion. Unable to expectorate her mucus. She is maintaining good O2 saturations in the upper 90s on 4 L/min per nasal cannula. Afebrile. White count 9.1. Hemoglobin 12.3. Platelets 254. Sodium 138. Potassium 3.7. Bicarb 36. BUN 14. Creatinine 0.67. Glucose 302. She remains on DuoNeb inhalation, Symbicort, Singulair, theophylline, Solu-Medrol. She remains on oral diuretics. Lovenox for DVT prophylaxis. The patient is seen today May 28, 2023 in follow-up on the regular medical floor. She is resting comfortably in bed. Awake and alert in no acute distress. Continues to maintain good O2 saturations in the 90s on 4 L/min per nasal cannula. Plan is for bronchoscopy with BAL today. She remains on DuoNeb inhalation, Symbicort, Singulair, theophylline, Solu-Medrol. She remains on oral diuretics. Lovenox for DVT prophylaxis. Patient is seen today May 29, 2023 in follow-up on the regular medical floor. She is awake and alert in no acute distress. Resting quite comfortably in bed. She did undergo bronchoscopy with BAL yesterday. She is breathing easier with less congestion. She is continued on bronchodilators, steroids, Singulair, theophylline. Remains on oral diuretics. Lovenox for DVT prophylaxis. White count 15.6. Hemoglobin 13.1. Platelets 279. Sodium 137. Potassium 3.5. Bicarb 38. BUN 24. Creatinine 0.81. Glucose 201. Objective - Vital Signs Vital signs: Vital Signs Temp 98.8 F 05/29/23 12:15 Pulse 76 05/29/23 12:46 Resp 16 05/29/23 12:15 BP 135/84 05/29/23 12:15 Pulse Ox 93 L 05/29/23 12:15 FiO2 Intake & Output 05/28/23 05/29/23 05/29/23 18:59 06:59 18:59 Intake Total 50 Balance 50 Weight 72.575 kg Intake: IV 50 Other: # Voids 3 5 - Exam GENERAL EXAM: Awake, 63-year-old female, sitting in bed, on 3 L nasal cannula, in no apparent distress. HEAD: Normocephalic. EYES: Normal reaction of pupils, equal size. NOSE: Clear with pink turbinates. THROAT: No erythema or exudates. NECK: No masses, no JVD. CHEST: No chest wall deformity. LUNGS: Equal air entry with bilateral end expiratory wheeze, diminished. CVS: S1 and S2 normal with no audible murmur, regular rhythm. ABDOMEN: No hepatosplenomegaly, normal bowel sounds, no guarding or rigidity. SPINE: No scoliosis or deformity SKIN: No rashes CENTRAL NERVOUS SYSTEM: No focal deficits, tone is normal in all 4 extremities. EXTREMITIES: There is no peripheral edema. No clubbing, no cyanosis. Gayle pheral pulses are intact. - Labs CBC & Chem 7: 05/29/23 08:30 05/29/23 08:30 Labs: Abnormal Lab Results - Last 24 Hours (Table) 05/28/23 05/29/23 05/29/23 Range/Units 14:06 08:30 08:30 WBC 15.6 H (3.8-10.6) k/uL MCHC 29.9 L (31.0-37.0) g/dL Chloride 92 L (98-107) mmol/L Carbon Dioxide 38 H (22-30) mmol/L BUN 24 H (7-17) mg/dL Glucose 201 H (74-99) mg/dL Magnesium 2.5 H (1.6-2.3) mg/dL Fluid Appearance Cloudy A (Clear) Assessment and Plan Assessment: Acute COPD exacerbation, chest x-ray showed no acute abnormalities. No airspace disease or pneumonia. Viral screen negative. Bronchoscopy with BAL performed May 28, 2023, cultures pending Chronic COPD with chronic hypoxic respiratory failure maintained on 4 L of O2 nasal cannula, chronic hypercapnic respiratory failure is also suspected that the patient has chronic metabolic alkalosis Morbid obesity History of CVA back in 2009 Dementia Schizophrenia Hard of hearing Limited mobility and the patient has issues with balance. The patient seems to be better than at this point in time. She has history of chronic back pain and sciatica Remote history of seizure disorder, currently inactive Hiatal hernia Peptic ulcer disease History of constipation Hypertension Hyperlipidemia Fibromyalgia Osteoarthritis Hypothyroidism Plan: The patient was seen and evaluated Medications and labs reviewed Bronchoscopy performed yesterday Cultures pending Continue the current treatment plan Titrate the FiO2 as tolerated Plan is to return to [facility] at discharge I have personally seen and examined the patient, performed the documentation and the assessment and plan as written. Number of minutes spent on the visit: 10.
[2023-05-30] MEDS ORDERED: VANCOMYCIN IV PER PHARMACY 1 EACH MISC MISCELLANE PRN (14:03)
--- NOTE | 2023-05-30 14:04 | P.PN ---
Subjective Progress Note Date: 05/30/23 This is a consultation and the patient is being seen for shortness of breath. The patient is a 63-year-old female with known history of schizophrenia and she also has history of COPD and she has been hospitalized in the past for stroke exacerbation. She is coming in for increased dyspnea cough chest tightness and wheezing. She is a poor historian. She is currently on oxygen on 4 L of oxygen by nasal cannula. The chest x-ray at the time of admission shows no evidence of any acute cardiopulmonary abnormalities. The patient has scattered parenchymal changes without any focal airspace disease and those changes are essentially chronic. The patient's white cell count is at 6.5 with a hemoglobin 11.2. Serum bicarb is at 34 with a sodium level 139 and a potassium level of 3.5. LFTs are within normal limits. The patient is currently on 40 of oxygen by nasal cannula with a pulse ox of 96%. She is experiencing some cough and congestion. No reported aspiration. The patient is seen today May 24, 2023 in follow-up on the regular medical floor. She is currently sitting up in bed. Awake and alert in no acute distress. She is still bronchospastic and wheezing. Still with some chest ti ghtness and congestion. She is maintaining O2 saturations in the mid 90s on 4 L/min per nasal cannula. She is afebrile. Hemodynamically stable. No new labs today. She is continued on DuoNeb inhalations, Singulair, Mucinex, Solu-Medrol. Patient is seen today May 25, 2023 in follow-up on the regular medical floor. She is sitting up in bed. Awake and alert in no acute distress. She is main taining O2 saturations in the 90s on 4 L/min per nasal cannula. She remains quite bronchospastic and wheezy. No new labs today. She is continued on DuoNeb inhalations, Singulair, Mucinex, Solu-Medrol. The patient is seen today May 26, 2023 in follow-up on the regular medical floor. She is awake and alert in no acute distress. Sitting up at the bedside. Maintaining good O2 saturations in the 90s on 2 L/min per nasal cannula. She is afebrile. Hemodynamically stable. Still somewhat bronchospastic and wheezing. Still not back to her baseline. She remains on DuoNeb inhalation, Symbicort, Singulair, theophylline, Solu-Medrol. She remains on oral diuretics. Lovenox for DVT prophylaxis. The patient is seen today May 27, 2023 in follow-up on the regular medical floor. She is sitting up in bed. Awake and alert in no acute distress. She has been slow to progress. Still with cough and congestion. Unable to expectorate her mucus. She is maintaining good O2 saturations in the upper 90s on 4 L/min per nasal cannula. Afebrile. White count 9.1. Hemoglobin 12.3. Platelets 254. Sodium 138. Potassium 3.7. Bicarb 36. BUN 14. Creatinine 0.67. Glucose 302. She remains on DuoNeb inhalation, Symbicort, Singulair, theophylline, Solu-Medrol. She remains on oral diuretics. Lovenox for DVT prophylaxis. The patient is seen today May 28, 2023 in follow-up on the regular medical floor. She is resting comfortably in bed. Awake and alert in no acute distress. Continues to maintain good O2 saturations in the 90s on 4 L/min per nasal cannula. Plan is for bronchoscopy with BAL today. She remains on DuoNeb inhalation, Symbicort, Singulair, theophylline, Solu-Medrol. She remains on oral diuretics. Lovenox for DVT prophylaxis. Patient is seen today May 29, 2023 in follow-up on the regular medical floor. She is awake and alert in no acute distress. Resting quite comfortably in bed. She did undergo bronchoscopy with BAL yesterday. She is breathing easier with less congestion. She is continued on bronchodilators, steroids, Singulair, theophylline. Remains on oral diuretics. Lovenox for DVT prophylaxis. White count 15.6. Hemoglobin 13.1. Platelets 279. Sodium 137. Potassium 3.5. Bicarb 38. BUN 24. Creatinine 0.81. Glucose 201. The patient is seen today May 30, 2023 in follow-up on the regular medical floor. She is up ambulating in her room. Awake and alert in no acute distress. Continues to maintain good O2 saturations in the 90s on 3 L/min per nasal cannula. Bronchial wash cultures are showing presumptive Staph aureus. She is continued on bronchodilators, steroids, Singulair, theophylline. Remains on oral diuretics. Lovenox for DVT prophylaxis. Objective - Vital Signs Vital signs: Vital Signs Temp 97.8 F 05/30/23 07:26 Pulse 77 05/30/23 12:14 Resp 19 05/30/23 07:26 BP 145/80 05/30/23 07:26 Pulse Ox 95 05/30/23 07:26 FiO2 Intake & Output 05/29/23 05/30/23 05/30/23 18:59 06:59 18:59 Intake Total 10 Balance 10 Intake: IV 10 Invasive Line 2 10 Other: Voiding Method Toilet # Voids 3 1 # Bowel Movements 1 - Exam GENERAL EXAM: Awake, 63-year-old female, up ambulating in her room, on 3 L nasal cannula, in no apparent distress. HEAD: Normocephalic. EYES: Normal reaction of pupils, equal size. NOSE: Clear with pink turbinates. THROAT: No erythema or exudates. NECK: No masses, no JVD. CHEST: No chest wall deformity. LUNGS: Equal air entry with bilateral end expiratory wheeze, diminished. CVS: S1 and S2 normal with no audible murmur, regular rhythm. ABDOMEN: No hepatosplenomegaly, normal bowel sounds, no guarding or rigidity. SPINE: No scoliosis or deformity SKIN: No rashes CENTRAL NERVOUS SYSTEM: No focal deficits, tone is normal in all 4 extremities. EXTREMITIES: There is no peripheral edema. No clubbing, no cyanosis. Peripheral pulses are intact. - Labs CBC & Chem 7: 05/29/23 08:30 05/29/23 08:30 Labs: Microbiology - Last 24 Hours (Table) 05/28/23 14:06 Gram Stain - Preliminary Bronchoalviolar Lavage - Right Bronchial Washings Culture - Preliminary Presumptive Staph aureus Assessment and Plan Assessment: Acute COPD exacerbation, chest x-ray showed no acute abnormalities. No airsp denis disease or pneumonia. Viral screen negative. Bronchoscopy with BAL performed May 28, 2023, cultures revealing presumptive Staph aureus Chronic COPD with chronic hypoxic respiratory failure maintained on 4 L of O2 nasal cannula, chronic hypercapnic respiratory failure is also suspected that the patient has chronic metabolic alkalosis Morbid obesity History of CVA back in 2009 Dementia Schizophrenia Hard of hearing Limited mobility and the patient has issues with balance. The patient seems to be better than at this point in time. She has history of chronic back pain and sciatica Remote history of seizure disorder, currently inactive Hiatal hernia Peptic ulcer disease History of constipation Hypertension Hyperlipidemia Fibromyalgia Osteoarthritis Hypothyroidism Plan: The patient was seen and evaluated Medications and labs reviewed Bronchoscopy culture revealing presumptive Staph aureus And vancomycin, pharmacy to dose Titrate the FiO2 as tolerated We will continue to follow I have personally seen and examined the patient, performed the documentation and the assessment and plan as written. Number of minutes spent on the visit: 10.
[2023-05-30] MEDS: VANCOMYCIN 1,250 MG in SODIUM CHLORIDE 0.9% 250 ML IVPB SCH (15:06)
--- NOTE | 2023-05-30 16:31 | P.PN ---
Subjective Progress Note Date: 05/30/23 Patient is a 63-year-old female with a PMH of COPD on 3L home O2, hypertension, hyperlipidemia, seizure disorder, and hypothyroidism who presents to the emergency room with complaints of shortness of breath. Patient reports that she has been experiencing gradually worsening shortness of breath over the past 24 hours. She reports a nonproductive cough and denied experiencing chest pain, nausea, vomiting, abdominal pain, diarrhea. Chest x-ray in the emergency room revealed no acute abnormalities with EKG showing sinus rhythm at [address]/T wave changes. Laboratory evaluation was remarkable for CO2 36 with glucose 141 and troponin less than 0.012. Patient was admitted for COPD exacerbation. Started on bronchodilators and SoluMedrol. Pulmonary consulted. Underwent bronchoscopy 05/27. 05/28 Patient was seen and examined. Improved breathing but considerable wheezing. CBC WBC 15.6. CMP Cl 92, bicarb 38, BUN 24, glu 201. Mag 2.5 05/29 Patient was seen and examined. Improved breathing. Prelim BAL cultures + staph. Patient has been started on Vancomycin by Pulmonary. General: non toxic, no distress, appears at stated age Derm: warm, dry Head: atraumatic, normocephalic, symmetric Eyes: EOMI, no lid lag, anicteric sclera Mouth: no lip lesion, mucus membranes moist Cardiovascular: S1S2 reg, no murmur Lungs: Diffuse expiratory wheezing bilateral, no rhonchi, no rales , no accessory muscle use Ext: no gross muscle atrophy, no edema, no contractures Neuro: no focal neuro deficits Psych: Alert, oriented, appropriate affect Based on my assessment of this patient, this patient meets a high complexity level of care. Patient has an acute diagnosis of acute COPD exacerbation that poses a threat to life or bodily function. Acute on chronic hypoxic respiratory failure: Symbicort 2 INH BID. DuoNeb QID scheduled and PRN for SOB/wheezing. SoluMedrol 60 mg IV Q6H. Pulmonary on board. BAL culture + staph: Vancomycin dosed per pharmacy. Daily renal function monitoring and trough monitoring for toxicity. Acute on chronic COPD exacerbation Chronic conditions: Hypertension, Hyperlipidemia, Seizure disorder, Hypothyroidism CODE STATUS: FULL CODE. DVT Prophylaxis: Lovenox SQ GI Prophylaxis: Protonix PO Designated medical POA if patient is not able to make medical decisions for themselves: I have reviewed the following c consultant notes: Pulmonary I have reviewed the results of the following tests: BAL Cx. I have ordered the following tests: BMP. Trough. I have discussed the care of this patient with the following independent historian: NAHOMY I have independently interpreted the following test below: I have discussed the management of this patient with the following physician: Objective - Vital Signs Vital signs: Vital Signs Temp 97.8 F 05/30/23 15:03 Pulse 72 05/30/23 15:52 Resp 19 05/30/23 15:03 BP 132/79 05/30/23 15:03 Pulse Ox 96 05/30/23 15:03 FiO2 Intake & Output 05/29/23 05/30/23 05/30/23 18:59 06:59 18:59 Intake Total 10 Balance 10 Intake: IV 10 Invasive Line 2 10 Other: Voiding Method Toilet # Voids 3 1 # Bowel Movements 1 - Labs CBC & Chem 7: 05/29/23 08:30 05/29/23 08:30 Labs: Microbiology - Last 24 Hours (Table) 05/28/23 14:06 Gram Stain - Preliminary Bronchoalviolar Lavage - Right Bronchial Washings Culture - Preliminary Presumptive Staph aureus
[2023-05-31 05:51] LABS: African American GFR (CKD) >90 (>60 ml/min/1.73 sqM); Non-African American GFR(CKD) >90 (>60 ml/min/1.73 sqM)
[2023-05-31 09:35] LABS: Nucleated Cells, Body Fluid 513 /UL
--- NOTE | 2023-05-31 10:59 | P.DS ---
Providers Date of admission: 05/22/23 23:40 Expected date of discharge: 05/31/23 Attending physician: Bernie Emerson MD Consults: 05/22/23 23:40 Consult Physician Routine Consulting Provider: Leslie Elias Consult Reason/Comments: hypoxiay Do you want consulting provider notified?: Yes Primary care physician: [facility] Course: Patient is a 63-year-old female with a PMH of COPD on 3L home O2, hypertension, hyperlipidemia, seizure disorder, and hypothyroidism who presents to the emergency room with complaints of shortness of breath. Patient reports that she has been experiencing gradually worsening shortness of breath over the past 24 hours. She reports a nonproductive cough and denied experiencing chest pain, nausea, vomiting, abdominal pain, diarrhea. Chest x-ray in the emergency room revealed no acute abnormalities with EKG showing sinus rhythm at [address]/T wave changes. Laboratory evaluation was remarkable for CO2 36 with glucose 141 and troponin less than 0.012. Patient was admitted for COPD exacerbation. Started on bronchodilators and SoluMedrol. Pulmonary consulted. Underwent bronchoscopy 05/27. 05/28 Patient was seen and examined. Improved breathing but considerable wheezing. CBC WBC 15.6. CMP Cl 92, bicarb 38, BUN 24, glu 201. Mag 2.5 05/29 Patient was seen and examined. Improved breathing. Prelim BAL cultures + staph. Patient has been started on Vancomycin by Pulmonary. 05/30 Patient was seen and examined. Reports difficulty bringing up sputum. Breathing is stable. Currently on baseline of 3L NC. BAL cultures + MRSA. Plans to discharge to [facility] on Zyvox 600 mg PO BID x 5 days (total of 7 days antibiotics), Prednisone taper and Symbicort INH. General: non toxic, no distress, appears at stated age Derm: warm, dry Head: atraumatic, normocephalic, symmetric Eyes: EOMI, no lid lag, anicteric sclera Mouth: no lip lesion, mucus membranes moist Cardiovascular: S1S2 reg, no murmur Lungs: End expiratory wheezing bilateral with poor inspiratory effort, no rhonchi, no rales , no accessory muscle use Ext: no gross muscle atrophy, no edema, no contractures Neuro: no focal neuro deficits Psych: Alert, oriented, appropriate affect Discharge Diagnosis: Acute on chronic hypoxic respiratory failure BAL culture MRSA Acute on chronic COPD exacerbation Chronic conditions: Hypertension, Hyperlipidemia, Seizure disorder, Hypothyroidism This complex discharge took 35 minutes to complete. Patient Condition at Discharge: Stable Plan - Discharge Summary Discharge Rx Participant: No New Discharge Prescriptions: New Budesonide-Formot 160-4.5 Mcg [Symbicort 160-4.5 Mcg Inhaler] 2 puff INHALATION RT-BID #1 each Linezolid [Zyvox] 600 mg PO Q12H #10 tab predniSONE See Taper PO DIRECTED #30 tab Continue Furosemide [Lasix] 40 mg PO BID Budesonide [Pulmicort] 0.5 mg INHALATION RT-BID ALPRAZolam [Xanax] 1 mg PO HS Multivitamins, Thera [Multivitamin (formulary)] 1 tab PO DAILY Levothyroxine Sodium [Synthroid] 100 mcg PO DAILY Acetaminophen Tab [Tylenol] 650 mg PO Q6H PRN PRN Reason: Fever And/ Or Pain Montelukast [Singulair] 10 mg PO HS Pantoprazole Sodium [Protonix] 20 mg PO DAILY levETIRAcetam [Keppra Oral Solution] 900 mg PO Q12H polyethylene glycoL 3350 [Miralax] 17 gm PO DAILY PRN PRN Reason: Constipation Cyclobenzaprine HCl 7.5 mg PO HS PRN PRN Reason: Pain atenoloL [Tenormin] 25 mg PO Q12H ALPRAZolam [Xanax] 0.5 tab PO DAILY Bismuth Subsalicylate [Pepto-Bismol] 524 mg PO Q4H PRN PRN Reason: gi upset guaiFENesin [guaiFENesin Oral Solution] 200 mg PO Q6H PRN PRN Reason: Cough Loperamide [Imodium] 2 mg PO QID PRN PRN Reason: Diarrhea Loratadine 10 mg PO DAILY Theophylline Anhydrous [Theophylline Oral Soln] 200 mg PO DAILY Zolpidem Tartrate [Ambien] 10 mg PO HS risperiDONE [RisperDAL] 3 mg PO HS HYDROcodone/APAP 7.5-325MG [[place] 7.5-325] 1 tab PO Q6HR Guaifenesin/Pseudoephedrne HCl [Mucinex D ER 1,200-120 mg Tab] 1 tab PO BID PRN PRN Reason: Congestion lisinopriL [Zestril] 5 mg PO DAILY Ipratropium-Albuterol Nebulize [Duoneb 0.5 mg-3 mg/3 ml Soln] 3 ml INHALATION RT-Q6H DULoxetine HCL [Cymbalta] 30 mg PO DAILY Docusate [Colace] 200 mg PO DAILY Menthol [Biofreeze] 1 applic TOPICAL Q12H PRN PRN Reason: Pain Benzocaine/Menthol [Cepacol Throat 15-3.6 mg Soila] 1 lozenge MM Q3H PRN PRN Reason: Sore Throat Lidocaine 4% Patch 1 patch TOPICAL DAILY Potassium Chloride ER [K-Dur 20] 20 meq PO Q12H Albuterol Inhaler [Ventolin Hfa Inhaler] 2 puff INHALATION RT-Q6H Melatonin 3 mg PO HS Discharge Medication List Budesonide [Pulmicort] 0.5 mg INHALATION RT-BID 10/24/15 [History] Furosemide [Lasix] 40 mg PO BID 10/24/15 [History] ALPRAZolam [Xanax] 1 mg PO HS 10/21/16 [History] Acetaminophen Tab [Tylenol] 650 mg PO Q6H PRN 10/21/16 [History] Levothyroxine Sodium [Synthroid] 100 mcg PO DAILY 10/21/16 [History] Multivitamins, Thera [Multivitamin (formulary)] 1 tab PO DAILY 10/21/16 [His tory] Benzocaine/Menthol [Cepacol Throat 15-3.6 mg Soila] 1 lozenge MM Q3H PRN 08/26/21 [History] Cyclobenzaprine HCl 7.5 mg PO HS PRN 08/26/21 [History] DULoxetine HCL [Cymbalta] 30 mg PO DAILY 08/26/21 [History] Docusate [Colace] 200 mg PO DAILY 08/26/21 [History] Guaifenesin/Pseudoephedrne HCl [Mucinex D ER 1,200-120 mg Tab] 1 tab PO BID PRN 08/26/21 [History] HYDROcodone/APAP 7.5-325MG [[place] 7.5-325] 1 tab PO Q6HR 08/26/21 [History] Ipratropium-Albuterol Nebulize [Duoneb 0.5 mg-3 mg/3 ml Soln] 3 ml INHALATION RT-Q6H 08/26/21 [History] Menthol [Biofreeze] 1 applic TOPICAL Q12H PRN 08/26/21 [History] Montelukast [Singulair] 10 mg PO HS 08/26/21 [History] Pantoprazole Sodium [Protonix] 20 mg PO DAILY 08/26/21 [History] Zolpidem Tartrate [Ambien] 10 mg PO HS 08/26/21 [History] atenoloL [Tenormin] 25 mg PO Q12H 08/26/21 [History] levETIRAcetam [Keppra Oral Solution] 900 mg PO Q12H 08/26/21 [History] lisinopriL [Zestril] 5 mg PO DAILY 08/26/21 [History] polyethylene glycoL 3350 [Miralax] 17 gm PO DAILY PRN 08/26/21 [History] risperiDONE [RisperDAL] 3 mg PO HS 08/26/21 [History] ALPRAZolam [Xanax] 0.5 tab PO DAILY 05/23/23 [History] Albuterol Inhaler [Ventolin Hfa Inhaler] 2 puff INHALATION RT-Q6H 05/23/23 [History] Bismuth Subsalicylate [Pepto-Bismol] 524 mg PO Q4H PRN 05/23/23 [History] Lidocaine 4% Patch 1 patch TOPICAL DAILY 05/23/23 [History] Loperamide [Imodium] 2 mg PO QID PRN 05/23/23 [History] Loratadine 10 mg PO DAILY 05/23/23 [History] Potassium Chloride ER [K-Dur 20] 20 meq PO Q12H 05/23/23 [History] Theophylline Anhydrous [Theophylline Oral Soln] 200 mg PO DAILY 05/23/23 [History] guaiFENesin [guaiFENesin Oral Solution] 200 mg PO Q6H PRN 05/23/23 [History] Melatonin 3 mg PO HS 05/25/23 [History] Budesonide-Formot 160-4.5 Mcg [Symbicort 160-4.5 Mcg Inhaler] 2 puff INHALATION RT-BID #1 each 05/31/23 [Rx] Linezolid [Zyvox] 600 mg PO Q12H #10 tab 05/31/23 [Rx] predniSONE See Taper PO DIRECTED #30 tab 05/31/23 [Rx] Follow up Appointment(s)/Referral(s): Aung Espitia, [NON-STAFF] - As Needed Hong Martin DO [Primary Care Provider] - 1-2 days
--- NOTE | 2023-05-31 13:36 | P.PN ---
Subjective Progress Note Date: 05/31/23 This is a consultation and the patient is being seen for shortness of breath. The patient is a 63-year-old female with known history of schizophrenia and she also has history of COPD and she has been hospitalized in the past for stroke exacerbation. She is coming in for increased dyspnea cough chest tightness and wheezing. She is a poor historian. She is currently on oxygen on 4 L of oxygen by nasal cannula. The chest x-ray at the time of admission shows no evidence of any acute cardiopulmonary abnormalities. The patient has scattered parenchymal changes without any focal airspace disease and those changes are essentially chronic. The patient's white cell count is at 6.5 with a hemoglobin 11.2. Serum bicarb is at 34 with a sodium level 139 and a potassium level of 3.5. LFTs are within normal limits. The patient is currently on 40 of oxygen by nasal cannula with a pulse ox of 96%. She is experiencing some cough and congestion. No reported aspiration. The patient is seen today May 24, 2023 in follow-up on the regular medical floor. She is currently sitting up in bed. Awake and alert in no acute distress. She is still bronchospastic and wheezing. Still with some chest ti ghtness and congestion. She is maintaining O2 saturations in the mid 90s on 4 L/min per nasal cannula. She is afebrile. Hemodynamically stable. No new labs today. She is continued on DuoNeb inhalations, Singulair, Mucinex, Solu-Medrol. Patient is seen today May 25, 2023 in follow-up on the regular medical floor. She is sitting up in bed. Awake and alert in no acute distress. She is main taining O2 saturations in the 90s on 4 L/min per nasal cannula. She remains quite bronchospastic and wheezy. No new labs today. She is continued on DuoNeb inhalations, Singulair, Mucinex, Solu-Medrol. The patient is seen today May 26, 2023 in follow-up on the regular medical floor. She is awake and alert in no acute distress. Sitting up at the bedside. Maintaining good O2 saturations in the 90s on 2 L/min per nasal cannula. She is afebrile. Hemodynamically stable. Still somewhat bronchospastic and wheezing. Still not back to her baseline. She remains on DuoNeb inhalation, Symbicort, Singulair, theophylline, Solu-Medrol. She remains on oral diuretics. Lovenox for DVT prophylaxis. The patient is seen today May 27, 2023 in follow-up on the regular medical floor. She is sitting up in bed. Awake and alert in no acute distress. She has been slow to progress. Still with cough and congestion. Unable to expectorate her mucus. She is maintaining good O2 saturations in the upper 90s on 4 L/min per nasal cannula. Afebrile. White count 9.1. Hemoglobin 12.3. Platelets 254. Sodium 138. Potassium 3.7. Bicarb 36. BUN 14. Creatinine 0.67. Glucose 302. She remains on DuoNeb inhalation, Symbicort, Singulair, theophylline, Solu-Medrol. She remains on oral diuretics. Lovenox for DVT prophylaxis. The patient is seen today May 28, 2023 in follow-up on the regular medical floor. She is resting comfortably in bed. Awake and alert in no acute distress. Continues to maintain good O2 saturations in the 90s on 4 L/min per nasal cannula. Plan is for bronchoscopy with BAL today. She remains on DuoNeb inhalation, Symbicort, Singulair, theophylline, Solu-Medrol. She remains on oral diuretics. Lovenox for DVT prophylaxis. Patient is seen today May 29, 2023 in follow-up on the regular medical floor. She is awake and alert in no acute distress. Resting quite comfortably in bed. She did undergo bronchoscopy with BAL yesterday. She is breathing easier with less congestion. She is continued on bronchodilators, steroids, Singulair, theophylline. Remains on oral diuretics. Lovenox for DVT prophylaxis. White count 15.6. Hemoglobin 13.1. Platelets 279. Sodium 137. Potassium 3.5. Bicarb 38. BUN 24. Creatinine 0.81. Glucose 201. The patient is seen today May 30, 2023 in follow-up on the regular medical floor. She is up ambulating in her room. Awake and alert in no acute distress. Continues to maintain good O2 saturations in the 90s on 3 L/min per nasal cannula. Bronchial wash cultures are showing presumptive Staph aureus. She is continued on bronchodilators, steroids, Singulair, theophylline. Remains on oral diuretics. Lovenox for DVT prophylaxis. The patient is seen today May 31, 2023 in follow-up on the regular medical floor. She is resting comfortably in bed. Awake and alert in no acute distress. Her bronchial wash cultures are positive for methicillin resistant Staph aureus. She is currently on vancomycin. Creatinine 0.67. GFR greater than 90. She remains on bronchodilators, steroids, Singulair and theophylline. Remains on oral diuretics. Lovenox for DVT prophylaxis.. Objective - Vital Signs Vital signs: Vital Signs Temp 98.1 F 05/31/23 07:47 Pulse 74 05/31/23 11:58 Resp 17 05/31/23 07:47 BP 153/81 05/31/23 07:47 Pulse Ox 96 05/31/23 08:52 FiO2 Intake & Output 05/30/23 05/31/23 05/31/23 18:59 06:59 18:59 Intake Total 10 Balance 10 Intake: IV 10 Invasive Line 2 10 Other: # Voids 3 2 - Exam GENERAL EXAM: Awake, 63-year-old female, resting in bed, on 3 L nasal cannula, in no apparent distress. HEAD: Normocephalic. EYES: Normal reaction of pupils, equal size. NOSE: Clear with pink turbinates. THROAT: No erythema or exudates. NECK: No masses, no JVD. CHEST: No chest wall deformity. LUNGS: Equal air entry with bilateral end expiratory wheeze, diminished. CVS: S1 and S2 normal with no audible murmur, regular rhythm. ABDOMEN: No hepatosplenomegaly, normal bowel sounds, no guarding or rigidity. SPINE: No scoliosis or deformity SKIN: No rashes CENTRAL NERVOUS SYSTEM: No focal deficits, tone is normal in all 4 extremities. EXTREMITIES: There is no peripheral edema. No clubbing, no cyanosis. Peripheral pulses are intact. - Labs CBC & Chem 7: 05/29/23 08:30 05/31/23 04:39 Labs: Abnormal Lab Results - Last 24 Hours (Table) 05/28/23 Range/Units 14:06 Fluid Appearance Cloudy A (Clear) Microbiology - Last 24 Hours (Table) 05/28/23 14:06 Gram Stain - Final Bronchoalviolar Lavage - Right Bronchial Washings Culture - Final Methicillin resist S. aureus 05/28/23 14:06 Acid Fast Bacilli Smear - Preliminary Bronchoalviolar Lavage - Right Assessment and Plan Assessment: Acute COPD exacerbation, chest x-ray showed no acute abnormalities. No airspace disease or pneumonia. Viral screen negative. Bronchoscopy with BAL performed May 28, 2023, cultures revealing methicillin resistant Staph aureus Chronic COPD with chronic hypoxic respiratory failure maintained on 4 L of O2 nasal cannula, chronic hypercapnic respiratory failure is also suspected that the patient has chronic metabolic alkalosis Morbid obesity History of CVA back in 2009 Dementia Schizophrenia Hard of hearing Limited mobility and the patient has issues with balance. The patient seems to be better than at this point in time. She has history of chronic back pain and sciatica Remote history of seizure disorder, currently inactive Hiatal hernia Peptic ulcer disease History of constipation Hypertension Hyperlipidemia Fibromyalgia Osteoarthritis Hypothyroidism Plan: The patient was seen and evaluated Medications and labs reviewed Bronchoscopy culture revealing methicillin resistant Staph aureus Currently on vancomycin, pharmacy to dose May be switched to Zyvox at discharge Discontinue Solu-Medrol Initiate a prednisone taper Plan is to return to [facility] at discharge I have personally seen and examined the patient, performed the documentation and the assessment and plan as written. Number of minutes spent on the visit: 10.
[2023-05-31 14:59] VITALS: BP 148/70; PULSE 67; RESP 19; TEMP 98
[2023-05-31] MEDS ORDERED: VANCOMYCIN 1,250 MG in SODIUM CHLORIDE 0.9% 250 ML IVPB SCH (18:00)
[2023-06-01] MEDS ORDERED: VANCOMYCIN TROUGH DUE 1 EACH MISC MISCELLANE ONE (05:00)
[2023-06-01] MEDS ORDERED: predniSONE 20 MG TAB PO SCH (09:00)
== END 2023-05-31 15:19 | DRG 140 ==
LOC: EC 21:45 → EEVIPCON 21:45 → 4SSUR 23:40
PROVIDERS: ADMIT Internal Medicine; ATTEND Internal Medicine
PROC: 0B9C8ZX Drainage of Right Upper Lung Lobe, Via Natural or Artificial Opening Endoscopic, Diagnostic (ICD-10-PCS; 2023-05-28)
PROC: 0B9D8ZX Drainage of Right Middle Lung Lobe, Via Natural or Artificial Opening Endoscopic, Diagnostic (ICD-10-PCS; 2023-05-28)
PROC: 0B9H8ZX Drainage of Lung Lingula, Via Natural or Artificial Opening Endoscopic, Diagnostic (ICD-10-PCS; 2023-05-28)
PROC: 0B9G8ZX Drainage of Left Upper Lung Lobe, Via Natural or Artificial Opening Endoscopic, Diagnostic (ICD-10-PCS; 2023-05-28)
PROC: 0B9J8ZX Drainage of Left Lower Lung Lobe, Via Natural or Artificial Opening Endoscopic, Diagnostic (ICD-10-PCS; principal; 2023-05-28 07:30)
DX: J44.1 Chronic obstructive pulmonary disease with (acute) exacerbation (principal); J96.21 Acute and chronic respiratory failure with hypoxia; J96.22 Acute and chronic respiratory failure with hypercapnia; I11.0 Hypertensive heart disease with heart failure; K44.9 Diaphragmatic hernia without obstruction or gangrene; M19.90 Unspecified osteoarthritis, unspecified site; M79.7 Fibromyalgia; E03.9 Hypothyroidism, unspecified; E66.01 Morbid (severe) obesity due to excess calories; Z68.30 Body mass index [BMI] 30.0-30.9, adult; F03.93 Unspecified dementia, unspecified severity, with mood disturbance; F03.94 Unspecified dementia, unspecified severity, with anxiety; F20.9 Schizophrenia, unspecified; G40.909 Epilepsy, unspecified, not intractable, without status epilepticus; E87.3 Alkalosis; Z99.81 Dependence on supplemental oxygen; I50.32 Chronic diastolic (congestive) heart failure; E86.0 Dehydration; H91.93 Unspecified hearing loss, bilateral; K21.9 Gastro-esophageal reflux disease without esophagitis; G89.29 Other chronic pain; E78.5 Hyperlipidemia, unspecified; Z79.890 Hormone replacement therapy; Z79.899 Other long term (current) drug therapy; Z82.49 Family history of ischemic heart disease and other diseases of the circulatory system; Z82.62 Family history of osteoporosis; Z86.73 Personal history of transient ischemic attack (TIA), and cerebral infarction without residual deficits; Z91.81 History of falling; M81.0 Age-related osteoporosis without current pathological fracture; K59.00 Constipation, unspecified; M54.32 Sciatica, left side; M54.31 Sciatica, right side; Z22.322 Carrier or suspected carrier of Methicillin resistant Staphylococcus aureus; Z87.440 Personal history of urinary (tract) infections; Z87.01 Personal history of pneumonia (recurrent); Z88.0 Allergy status to penicillin; Z88.2 Allergy status to sulfonamides; Z88.8 Allergy status to other drugs, medicaments and biological substances
CPT/HCPCS: 31624; 36415; 71045; 80053; 82565; 83735; 83880; 84100; 84484; 85025; 85027; 85610; 85730; 87070; 87077; 87116; 87186; 87205; 87206; 87496; 87498; 87502; 87529; 87634; 87635; 87636; 87798; 89050; 93005; 94640; 94667; 94760; 96361; 96374; 99291

== ENCOUNTER 2023-06-07 23:10 | Emergency (ER) | payer OTHER ==
--- NOTE | 2023-06-07 23:58 | XR ---
EXAMINATION TYPE: XR chest 2V DATE OF EXAM: 06/07/2023 COMPARISON: Chest x-ray May 22, 2023 HISTORY: Dyspnea. TECHNIQUE: Frontal and lateral views of the chest are obtained. FINDINGS: Cardiomegaly is seen with mild central vascular congestion. No suspicious focal airspace o pacity, pleural effusion, or pneumothorax is evident bilaterally. The surgical change of the thoracol umbar spine is only partially imaged similar to prior. IMPRESSION: Suspect CHF exacerbation/fluid overload state as there is mild cardiomegaly with mild ce ntral vascular congestion noted.
[2023-06-08 00:13] LABS: Basophils % (A) 0 %; Eosinophils # (A) 0.2 k/uL (0-0.7); Eosinophils % (A) 2 %; HCT 34.1 % (34.0-46.0); HGB 11.1 gm/dL (11.4-16.0); Lymphocytes # (A) 1.7 k/uL (1.0-4.8); Lymphocytes % (A) 19 %; MCH 28.5 pg (25.0-35.0); MCHC 32.6 g/dL (31.0-37.0); MCV 87.4 fL (80.0-100.0); Mean Platelet Volume 6.9; Monocytes # (A) 0.7 k/uL (0-1.0); Monocytes % (A) 8 %; Neutrophils # (A) 6.2 k/uL (1.3-7.7); Neutrophils % (A) 69 %; Platelet Count 202 k/uL (150-450); RDW 15.2 % (11.5-15.5)
[2023-06-08 00:30] LABS: ALT 20 U/L (4-34); AST 21 U/L (14-36); African American GFR (CKD) >90 (>60 ml/min/1.73 sqM); Albumin 3.6 g/dL (3.5-5.0); Alkaline Phosphatase 74 U/L (38-126); Blood Urea Nitrogen 5 mg/dL (7-17); Chloride 93 mmol/L (98-107); Glucose 123 mg/dL (74-99); Non-African American GFR(CKD) >90 (>60 ml/min/1.73 sqM); Potassium 4.1 mmol/L (3.5-5.1); Sodium 135 mmol/L (137-145); Total Bilirubin 0.4 mg/dL (0.2-1.3); Total Protein 6.1 g/dL (6.3-8.2)
[2023-06-08 00:37] LABS: Anion Gap 9 mmol/L
[2023-06-08 00:39] LABS: NT-Pro-B-Type Natriuretic Pept 30 pg/mL
[2023-06-08 00:45] LABS: Carbon Dioxide 33 mmol/L (22-30)
[2023-06-08] MEDS: ALBUTEROL NEBULIZED 2.5 MG/3 ML INHALATION STA (01:12)
--- NOTE | 2023-06-08 01:13 | ED ---
SOB HPI - General Chief Complaint: Shortness of Breath Stated Complaint: SOB Time Seen by Provider: 06/07/23 23:17 Source: EMS Mode of arrival: EMS Limitations: no limitations - History of Present Illness Initial Comments: This patient is a 63-year-old woman brought to have evaluation for shortness of breath. It is reported that alf staff noted the patient appeared to be short of breath and initially measured pulse oximetry was low. The started patient on nebulized treatments and phoned EMS. EMS stated that they were gradually able to wean the patient from nonrebreather mask down. When I see the patient, she is not acutely dyspneic. MD Complaint: shortness of breath -: hour(s) Severity scale (1-10): 0 Consistency: now resolved Improves With: oxygen, bronchodilators Worsens With: nothing Associated Symptoms: denies other symptoms - Related Data Home Medications Medication Instructions Recorded Confirmed Budesonide [Pulmicort] 0.5 mg INHALATION RT-BID 10/24/15 05/23/23 Furosemide [Lasix] 40 mg PO BID 10/24/15 05/23/23 Acetaminophen Tab [Tylenol] 650 mg PO Q6H PRN 10/21/16 05/23/23 Levothyroxine Sodium [Synthroid] 100 mcg PO DAILY 10/21/16 05/23/23 Multivitamins, Thera [Multivitamin 1 tab PO DAILY 10/21/16 05/23/23 (formulary)] Benzocaine/Menthol [Cepacol Throat 1 lozenge MM Q3H PRN 08/26/21 05/23/23 15-3.6 mg Soila] Cyclobenzaprine HCl 7.5 mg PO HS PRN 08/26/21 05/23/23 DULoxetine HCL [Cymbalta] 30 mg PO DAILY 08/26/21 05/23/23 Docusate [Colace] 200 mg PO DAILY 08/26/21 05/23/23 Guaifenesin/Pseudoephedrne HCl 1 tab PO BID PRN 08/26/21 05/23/23 [Mucinex D ER 1,200-120 mg Tab] Ipratropium-Albuterol Nebulize 3 ml INHALATION RT-Q6H 08/26/21 05/23/23 [Duoneb 0.5 mg-3 mg/3 ml Soln] Menthol [Biofreeze] 1 applic TOPICAL Q12H PRN 08/26/21 05/23/23 Montelukast [Singulair] 10 mg PO HS 08/26/21 05/23/23 Pantoprazole Sodium [Protonix] 20 mg PO DAILY 08/26/21 05/23/23 atenoloL [Tenormin] 25 mg PO Q12H 08/26/21 05/23/23 levETIRAcetam [Keppra Oral 900 mg PO Q12H 08/26/21 05/23/23 Solution] lisinopriL [Zestril] 5 mg PO DAILY 08/26/21 05/23/23 polyethylene glycoL 3350 [Miralax] 17 gm PO DAILY PRN 08/26/21 05/23/23 risperiDONE [RisperDAL] 3 mg PO HS 08/26/21 05/23/23 Albuterol Inhaler [Ventolin Hfa 2 puff INHALATION RT-Q6H 05/23/23 05/23/23 Inhaler] Bismuth Subsalicylate 524 mg PO Q4H PRN 05/23/23 05/23/23 [Pepto-Bismol] Lidocaine 4% Patch 1 patch TOPICAL DAILY 05/23/23 05/23/23 Loperamide [Imodium] 2 mg PO QID PRN 05/23/23 05/23/23 Loratadine 10 mg PO DAILY 05/23/23 05/23/23 Potassium Chloride ER [K-Dur 20] 20 meq PO Q12H 05/23/23 05/23/23 Theophylline Anhydrous 200 mg PO DAILY 05/23/23 05/23/23 [Theophylline Oral Soln] guaiFENesin [guaiFENesin Oral 200 mg PO Q6H PRN 05/23/23 05/23/23 Solution] Melatonin 3 mg PO HS 05/25/23 05/25/23 Previous Rx's Medication Instructions Recorded ALPRAZolam [Xanax] 0.5 tab PO DAILY #3 tab 05/31/23 ALPRAZolam [Xanax] 1 mg PO HS #6 tab 05/31/23 Budesonide-Formot 160-4.5 Mcg 2 puff INHALATION RT-BID #1 each 05/31/23 [Symbicort 160-4.5 Mcg Inhaler] HYDROcodone/APAP 7.5-325MG [Gardner 1 tab PO Q6HR #12 tab 05/31/23 7.5-325] Linezolid [Zyvox] 600 mg PO Q12H #10 tab 05/31/23 Zolpidem Tartrate [Ambien] 10 mg PO HS #3 tab 05/31/23 predniSONE See Taper PO DIRECTED #30 tab 05/31/23 predniSONE [Deltasone] 20 mg PO BID #8 tab 06/08/23 Allergies Allergy/AdvReac Type Severity Reaction Status Date / Time cephalexin monohydrate Allergy Unknown Verified 05/23/23 13:27 [From Keflex] erythromycin base Allergy Unknown Verified 05/23/23 13:27 [Erythromycin Base] Iodinated Contrast Media Allergy Unknown Verified 05/23/23 13:27 [Iodinated Contrast- Oral and IV Dye] Penicillins Allergy Unknown Verified 05/23/23 13:27 Sulfa (Sulfonamide Allergy Unknown Verified 05/23/23 13:27 Antibiotics) azithromycin [From Zithromax] AdvReac Nausea Verified 05/23/23 13:27 Opioids - Morphine Analogues AdvReac Confusion Verified 05/23/23 13:27 sulfamethoxazole AdvReac Nausea Verified 05/23/23 13:27 [From Bactrim] trimethoprim [From Bactrim] AdvReac Nausea Verified 05/23/23 13:27 Review of Systems ROS Statement: Those systems with pertinent positive or pertinent negative responses have been documented in the HPI. ROS Other: All systems not noted in ROS Statement are negative. Constitutional: Denies: fever Respiratory: Reports: dyspnea. Denies: cough Cardiovascular: Denies: chest pain, palpitations, edema Gastrointestinal: Denies: abdominal pain, vomiting, diarrhea Genitourinary: Denies: dysuria Musculoskeletal: Denies: back pain Neurological: Denies: headache, weakness Past Medical History Past Medical History: Asthma, Heart Failure, COPD, CVA/TIA, Dementia, Fibromyalgia, GERD/Reflux, Hyperlipidemia, Hypertension, Osteoarthritis (OA), Pneumonia, Respiratory Disorder, Seizure Disorder, Thyroid Disorder Additional Past Medical History / Comment(s): Stage IV lung disease, home 02 4 liters n/c ATC, CVA in 2009 and 2013 with behavior changes, seizure disorder with last seizure 2013, back pain with bilateral sciatica, osteoporosis, peptic ulcer disease, hiatal hernia, vertigo in past, does"nt walk with staright back d/t rods in back/balance issues and falls, INAJA bilaterally,UTI'S constipation LAST BM 4 DAYS AGO. History of Any Multi-Drug Resistant Organisms: MRSA Date of last positivie culture/infection: 1995 MDRO Source:: back (pt uncertain where she was treated) Past Surgical History: Adenoidectomy, Appendectomy, Back Surgery, Hysterectomy, Orthopedic Surgery, Tonsillectomy Additional Past Surgical History / Comment(s): back surgeries with rods in back, lt hip orif, colonoscopy, R eye tear duct repair.PICC LINE-SINCE REMOVED 09-26-15. Past Anesthesia/Blood Transfusion Reactions: No Reported Reaction Past Psychological History: Bipolar Past Alcohol Use History: None Reported Past Drug Use History: None Reported - Past Family History Father Family Medical History: Liver Disease Additional Family Medical History / Comment(s): from cirrhosis of the liver d/t etoh Mother Family Medical History: Congestive Heart Failure (CHF), Diabetes Mellitus, Osteoarthritis (OA) Additional Family Medical History / Comment(s): diverticulitis, osteoporosis Sister(s) Family Medical History: Liver Disease Additional Family Medical History / Comment(s): one sister at age 37 from cirrhosis of the liver-was heavy drinker General Exam Limitations: no limitations General appearance: alert, in no apparent distress Head exam: Present: atraumatic, normocephalic Eye exam: Present: normal appearance. Absent: scleral icterus, conjunctival injection Neck exam: Present: normal inspection Respiratory exam: Present: wheezes. Absent: respiratory distress, rales, rhonchi, stridor, accessory muscle use, decreased breath sounds Cardiovascular Exam: Present: regular rate, normal rhythm, normal heart sounds. Absent: systolic murmur, diastolic murmur, rubs, gallop GI/Abdominal exam: Present: soft. Absent: distended, tenderness, guarding, rebound, rigid, mass Extremities exam: Present: normal inspection, normal capillary refill. Absent: pedal edema, calf tenderness Back exam: Present: normal inspection. Absent: CVA tenderness (R), CVA tenderness (L) Neurological exam: Present: alert Skin exam: Present: warm, dry, intact, normal color. Absent: rash Course Vital Signs 06/07/23 06/08/23 06/08/23 23:11 00:15 01:02 Temperature Pulse Rate 60 69 68 Respiratory 14 16 16 Rate Blood Pressure 127/73 126/69 137/77 O2 Sat by Pulse 95 97 99 Oximetry 06/08/23 06/08/23 06/08/23 01:12 01:22 02:43 Temperature 98.7 F Pulse Rate 68 69 69 Respiratory 18 Rate Blood Pressure 126/78 O2 Sat by Pulse 98 Oximetry 06/08/23 03:32 Temperature Pulse Rate 77 Respiratory 18 Rate Blood Pressure 113/68 O2 Sat by Pulse 97 Oximetry Medical Decision Making - Medical Decision Making Patient is a 63-year-old woman in from alf for dyspnea. The patient had marked improvement by EMS transport. She did have some wheezing and had a another albuterol treatment. At that point she was not manifesting any distr ess. Respiratory pattern was comfortable. Oxygen saturations are good. Patient did want to go home. The patient had chest x-ray that I interpreted as negative for acute infiltrate, pneumothorax, congestive heart failure Was pt. sent in by a medical professional or institution (LUÍS Camacho, MANAGER ARCHITECTURE, urgent care, hospital, or alf...) When possible be specific @ -Sent from alf for evaluation Did you speak to anyone other than the patient for history (EMS, parent, family, police, friend...)? What history was obtained from this source @ -[Must give history Did you review nursing and triage notes (agree or disagree)? Why? @ -[I reviewed and agree with nursing and triage notes] Were old charts reviewed (outside hosp., previous admission, EMS record, old EKG, old radiological studies, urgent care reports/EKG's, alf records)? Report findings @ -[No old charts were reviewed] Differential Diagnosis (chest pain, altered mental status, abdominal pain women, abdominal pain men, vaginal bleeding, weakness, fever, dyspnea, syncope, headache, dizziness, GI bleed, back pain, seizure, CVA, palpatations, mental health, musculoskeletal)? @ -[Differential Dyspnea: Coronary syndrome, arrhythmia, tamponade, asthma, COPD, pulmonary embolism, pneumonia, pneumothorax, pulmonary effusion, anaphylaxis, diabetic ketoacidosis, flailed chest, pulmonary contusion, diaphragmatic rupture, anemia, neuromuscular, this is not meant to be an all-inclusive list. EKG interpreted by me (3pts min.). @ -[I interpreted as above] X-rays interpreted by me (1pt min.). @ -[Interpreted as above CT interpreted by me (1pt min.). @ -[None done] U/S interpreted by me (1pt. min.). @ -[None done] What testing was considered but not performed or refused? (CT, X-rays, U/S, labs)? Why? @ -[None] What meds were considered but not given or refused? Why? @ -[None] Did you discuss the management of the patient with other professionals (professionals i.e. , PA, MANAGER ARCHITECTURE, lab, RT, psych nurse, perinatal social worker, loading unit operator powder charging, teacher, gifts officer, disease case manager rn)? Give summary @ -[No] Was smoking cessation discussed for >3mins.? @ -[No] Was critical care preformed (if so, how long)? @ -[No] Were there social determinants of health that impacted care today? How? (Homelessness, low income, unemployed, alcoholism, drug addiction, transportation, low edu. Level, literacy, decrease access to med. care, halfway, rehab)? @ -[No] Was there de-escalation of care discussed even if they declined (Discuss DNR or withdrawal of care, Hospice)? DNR status @ -[No] What co-morbidities impacted this encounter? (DM, HTN, Smoking, COPD, CAD, Cancer, CVA, ARF, Chemo, Hep., AIDS, mental health diagnosis, sleep apnea, morbid obesity)? @ -[COPD Was patient admitted / discharged? Hospital course, mention meds given and route, prescriptions, significant lab abnormalities, going to OR and other pertinent info. @ -[As above Undiagnosed new problem with uncertain prognosis? @ -[No] Drug Therapy requiring intensive monitoring for toxicity (Heparin, Nitro, Insulin, Cardizem)? @ -[No] Were any procedures done? @ -[No] Diagnosis/symptom? @ -[Acute exacerbation of COPD Acute, or Chronic, or Acute on Chronic? @ -[Acute Uncomplicated (without systemic symptoms) or Complicated (systemic symptoms)? @ -[Uncomplicated Side effects of treatment? @ -[No] Exacerbation, Progression, or Severe Exacerbation? @ -[Exacerbation Poses a threat to life or bodily function? How? (Chest pain, USA, NH, pneumonia, PE, COPD, DKA, ARF, appy, cholecystitis, CVA, Diverticulitis, Homicidal, Suicidal, threat to staff... and all critical care pts) @ -[No] - Lab Data Result diagrams: 06/07/23 23:42 06/07/23 23:42 Lab Results 06/07/23 06/07/23 06/07/23 Range/Units 23:42 23:42 23:42 WBC 9.0 (3.8-10.6) k/uL RBC 3.90 (3.80-5.40) m/uL Hgb 11.1 L (11.4-16.0) gm/dL Hct 34.1 (34.0-46.0) % MCV 87.4 (80.0-100.0) fL MCH 28.5 (25.0-35.0) pg MCHC 32.6 (31.0-37.0) g/dL RDW 15.2 (11.5-15.5) % Plt Count 202 (150-450) k/uL MPV 6.9 Neutrophils % 69 % Lymphocytes % 19 % Monocytes % 8 % Eosinophils % 2 % Basophils % 0 % Neutrophils # 6.2 (1.3-7.7) k/uL Lymphocytes # 1.7 (1.0-4.8) k/uL Monocytes # 0.7 (0-1.0) k/uL Eosinophils # 0.2 (0-0.7) k/uL Basophils # 0.0 (0-0.2) k/uL Sodium 135 L (137-145) mmol/L Potassium 4.1 (3.5-5.1) mmol/L Chloride 93 L (98-107) mmol/L Carbon Dioxide 33 H (22-30) mmol/L Anion Gap 9 mmol/L BUN 5 L (7-17) mg/dL Creatinine 0.64 (0.52-1.04) mg/dL Est GFR (CKD-EPI)AfAm >90 (>60 ml/min/1.73 sqM) Est GFR (CKD-EPI)NonAf >90 (>60 ml/min/1.73 sqM) Glucose 123 H (74-99) mg/dL Plasma Lactic Acid Trevor 0.7 (0.7-2.0) mmol/L Calcium 9.0 (8.4-10.2) mg/dL Total Bilirubin 0.4 (0.2-1.3) mg/dL AST 21 (14-36) U/L ALT 20 (4-34) U/L Alkaline Phosphatase 74 (38-126) U/L Troponin I (0.000-0.034) ng/mL NT-Pro-B Natriuret Pep 30 pg/mL Total Protein 6.1 L (6.3-8.2) g/dL Albumin 3.6 (3.5-5.0) g/dL Influenza Type A (PCR) (Not Detectd) Influenza Type B (PCR) (Not Detectd) RSV (PCR) (Not Detectd) SARS-CoV-2 (PCR) (Not Detectd) 06/07/23 06/07/23 Range/Units 23:42 23:44 WBC (3.8-10.6) k/uL RBC (3.80-5.40) m/uL Hgb (11.4-16.0) gm/dL Hct (34.0-46.0) % MCV (80.0-100.0) fL MCH (25.0-35.0) pg MCHC (31.0-37.0) g/dL RDW (11.5-15.5) % Plt Count (150-450) k/uL MPV Neutrophils % % Lymphocytes % % Monocytes % % Eosinophils % % Basophils % % Neutrophils # (1.3-7.7) k/uL Lymphocytes # (1.0-4.8) k/uL Monocytes # (0-1.0) k/uL Eosinophils # (0-0.7) k/uL Basophils # (0-0.2) k/uL Sodium (137-145) mmol/L Potassium (3.5-5.1) mmol/L Chloride (98-107) mmol/L Carbon Dioxide (22-30) mmol/L Anion Gap mmol/L BUN (7-17) mg/dL Creatinine (0.52-1.04) mg/dL Est GFR (CKD-EPI)AfAm (>60 ml/min/1.73 sqM) Est GFR (CKD-EPI)NonAf (>60 ml/min/1.73 sqM) Glucose (74-99) mg/dL Plasma Lactic Acid Trevor (0.7-2.0) mmol/L Calcium (8.4-10.2) mg/dL Total Bilirubin (0.2-1.3) mg/dL AST (14-36) U/L ALT (4-34) U/L Alkaline Phosphatase (38-126) U/L Troponin I <0.012 (0.000-0.034) ng/mL NT-Pro-B Natriuret Pep pg/mL Total Protein (6.3-8.2) g/dL Albumin (3.5-5.0) g/dL Influenza Type A (PCR) Not Detected (Not Detectd) Influenza Type B (PCR) Not Detected (Not Detectd) RSV (PCR) Not Detected (Not Detectd) SARS-CoV-2 (PCR) Not Detected (Not Detectd) Disposition Clinical Impression: Acute exacerbation of chronic obstructive airways disease Disposition: HOME SELF-CARE Condition: Fair Instructions (If sedation given, give patient instructions): Chronic Bronchitis (ED) Prescriptions: predniSONE [Deltasone] 20 mg PO BID #8 tab Is patient prescribed a controlled substance at d/c from ED?: No Referrals: Hong Martin DO [Primary Care Provider] - 1-2 days
[2023-06-08 03:17] VITALS: RESP 18; TEMP 98.7
[2023-06-08 03:52] VITALS: BP 113/68; PULSE 77
== END 2023-06-08 03:37 | disposition home or self-care (01) ==
LOC: EC 23:10
DX: J44.1 Chronic obstructive pulmonary disease with (acute) exacerbation (principal); Z88.0 Allergy status to penicillin; Z88.1 Allergy status to other antibiotic agents; Z88.2 Allergy status to sulfonamides; Z88.5 Allergy status to narcotic agent; Z88.8 Allergy status to other drugs, medicaments and biological substances; Z91.041 Radiographic dye allergy status
CPT/HCPCS: 36415; 71046; 80053; 83605; 83880; 84484; 85025; 87636; 94640; 99285